=== PATIENT | male | born 1990 | race American Indian/Alaskan Native ===

== ENCOUNTER 2017-06-15 01:09 | Inpatient (IN) | payer OTHER ==
[2017-06-15] MEDS ORDERED: NACL 0.9% 1000 ML 1,000 ML IV ONE (02:02)
[2017-06-15 03:00] LABS: Basophils % (Auto) 0.9 % (0.0-1.8); Hematocrit 20.7 % (35.5-45.6); Mean Corpuscular HGB Conc 29 % (32-34); Mean Corpuscular Hemoglobin 18 pg (28-32); Mean Corpuscular Volume 62 fl (84-94); Platelet Count 274 K/mm3 (140-440); Red Blood Count 3.34 M/mm3 (3.65-5.03); Red Cell Distribution Width 19.1 % (13.2-15.2); White Blood Count 13.3 K/mm3 (4.5-11.0)
[2017-06-15 03:03] LABS: Alanine Aminotransferase 7 units/L (7-56); Albumin 4.3 g/dL (3.9-5); Albumin/Globulin Ratio 1.3 %; Alkaline Phosphatase 59 units/L (35-129); Anion Gap 19 mmol/L; BUN/Creatinine Ratio 8.88; Blood Urea Nitrogen 8 mg/dL (9-20); Calcium 9.3 mg/dL (8.4-10.2); Carbon Dioxide 24 mmol/L (22-30); Chloride 99.5 mmol/L (98-107); Glucose 99 mg/dL (75-100); Lipase 31 units/L (13-60); Potassium 3.8 mmol/L (3.6-5.0); Sodium 139 mmol/L (137-145); Total Protein 7.6 g/dL (6.3-8.2)
[2017-06-15 03:09] LABS: INR 1.04 (0.87-1.13)
[2017-06-15 03:10] LABS: Partial Thromboplastin Time 30.3 Sec. (24.2-36.6)
[2017-06-15] MEDS ORDERED: PROTONIX IV ONE (04:29)
[2017-06-15] MEDS ORDERED: ZOFRAN IV ONE (04:29)
[2017-06-15] MEDS ORDERED: NACL 0.9% 500 ML 500 ML IV ONE (04:34)
[2017-06-15] MEDS ORDERED: PROTONIX 80 MG in NACL 0.9% 100 ML IV ONE (04:34)
--- NOTE | 2017-06-15 04:37 | Emergency Department Report ---
ED GI Bleed HPI - General Chief complaint: GI Bleed Stated complaint: DIZZINESS, RECTAL BLEEDING,VOMITNG Time Seen by Provider: 06/15/17 04:36 Source: patient Mode of arrival: Ambulatory Limitations: No Limitations - History of Present Illness Initial comments: Patient is a 27-year-old male past medical history of hemorrhoids who presents with GI bleeding. Patient states for the last couple days he's been very nauseous and he has noticed dark stools coming out of his rectum. He states his nausea is severe and then he is repeatedly vomiting. Patient states that he is not able to hold any food down. He denies really any pain his nausea is associated with lightheadedness. That has been going on for 10 days. Patient states that he first noticed blood from his rectum which is an abnormal cause has hemorrhoid bleeds. However in the last 4 days he's noticed dark black stools. He has also noticed that when he when he last vomited he had some streaks of blood in it. Severity scale (0 -10): 10 - Related Data Home Medications Medication Instructions Recorded Confirmed Last Taken No Known Home Medications [No 06/15/17 06/15/17 Unknown Reported Home Medications] Allergies Allergy/AdvReac Type Severity Reaction Status Date / Time No Known Allergies Allergy Verified 06/15/17 04:31 ED Review of Systems ROS: Stated complaint: DIZZINESS, RECTAL BLEEDING,VOMITNG Other details as noted in HPI Constitutional: denies: chills, fever Eyes: denies: eye pain, eye discharge, vision change ENT: denies: ear pain, throat pain Respiratory: denies: cough, shortness of breath, wheezing Cardiovascular: denies: chest pain, palpitations Endocrine: no symptoms reported Gastrointestinal: nausea, vomiting, melena. denies: abdominal pain, diarrhea Genitourinary: denies: urgency, dysuria Musculoskeletal: denies: back pain, joint swelling, arthralgia Skin: denies: rash, lesions Neurological: other (lightheadedness ). denies: headache, weakness, paresthesias Psychiatric: denies: anxiety, depression Hematological/Lymphatic: denies: easy bleeding, easy bruising ED Past Medical Hx - Past Medical History Additional medical history: Morbid Obesity - Surgical History Past Surgical History?: No - Social History Smoking Status: Never Smoker Substance Use Type: None - Medications Home Medications: Home Medications Medication Instructions Recorded Confirmed Last Taken Type No Known Home Medications [No 06/15/17 06/15/17 Unknown History Reported Home Medications] ED Physical Exam - General Limitations: No Limitations General appearance: alert, in no apparent distress - Head Head exam: Present: atraumatic, normocephalic - Eye Eye exam: Present: normal appearance - ENT ENT exam: Present: mucous membranes moist - Neck Neck exam: Present: normal inspection - Respiratory Respiratory exam: Present: normal lung sounds bilaterally. Absent: respiratory distress - Cardiovascular Cardiovascular Exam: Present: regular rate, normal rhythm. Absent: systolic murmur, diastolic murmur, rubs, gallop - GI/Abdominal GI/Abdominal exam: Present: soft, normal bowel sounds - Rectal Rectal exam: Present: black stool, hemorrhoids - Extremities Exam Extremities exam: Present: normal inspection - Back Exam Back exam: Present: normal inspection - Neurological Exam Neurological exam: Present: alert, oriented X3 - Psychiatric Psychiatric exam: Present: normal affect, normal mood - Skin Skin exam: Present: warm, dry, intact, normal color. Absent: rash ED Course Vital Signs 06/15/17 06/15/17 01:54 04:21 Temperature 99 F Pulse Rate 93 H 67 Respiratory 20 15 Rate Blood Pressure 132/79 Blood Pressure 132/79 [Left] O2 Sat by Pulse 100 100 Oximetry - Reevaluation(s) Reevaluation #1: 06/15/17 04:56 Patient states that he is feeling nauseous PATIENT fluids and I'll start patient on Protonix drip. Discussed the patient he needs to keep nothing by mouth. - Consultations Consultation #1: 06/15/17 04:[address] Rodgers golf player assistant. He states that patient is to remain nothing by mouth and he will scope the patient later on this morning. ED Medical Decision Making - Lab Data Result diagrams: 06/15/17 02:17 06/15/17 02:17 Lab Results 06/15/17 06/15/17 06/15/17 Range/Units 02:17 02:17 02:17 WBC 13.3 H (4.5-11.0) K/mm3 RBC 3.34 L (3.65-5.03) M/mm3 Hgb 6.0 L (11.8-15.2) gm/dl Hct 20.7 L (35.5-45.6) % MCV 62 L (84-94) fl MCH 18 L (28-32) pg MCHC 29 L (32-34) % RDW 19.1 H (13.2-15.2) % Plt Count 274 (140-440) K/mm3 Lymph % (Auto) 16.9 (13.4-35.0) % [place] % (Auto) 6.7 (0.0-7.3) % Eos % (Auto) 1.0 (0.0-4.3) % Baso % (Auto) 0.9 (0.0-1.8) % Lymph # 2.3 (1.2-5.4) K/mm3 [place] # 0.9 H (0.0-0.8) K/mm3 Eos # 0.1 (0.0-0.4) K/mm3 Baso # 0.1 (0.0-0.1) K/mm3 Seg Neutrophils % 74.5 H (40.0-70.0) % Seg Neutrophils # 9.9 H (1.8-7.7) K/mm3 PT 14.1 (12.2-14.9) Sec. INR 1.04 (0.87-1.13) APTT 30.3 (24.2-36.6) Sec. Sodium 139 (137-145) mmol/L Potassium 3.8 (3.6-5.0) mmol/L Chloride 99.5 (98-107) mmol/L Carbon Dioxide 24 (22-30) mmol/L Anion Gap 19 mmol/L BUN 8 L (9-20) mg/dL Creatinine 0.9 (0.8-1.5) mg/dL Estimated GFR > 60 ml/min BUN/Creatinine Ratio 8.88 % Glucose 99 (75-100) mg/dL Calcium 9.3 (8.4-10.2) mg/dL Total Bilirubin 0.80 (0.1-1.2) mg/dL AST 13 (5-40) units/L ALT 7 (7-56) units/L Alkaline Phosphatase 59 (35-129) units/L Total Protein 7.6 (6.3-8.2) g/dL Albumin 4.3 (3.9-5) g/dL Albumin/Globulin Ratio 1.3 % Lipase 31 (13-60) units/L Blood Type Crossmatch 06/15/17 Range/Units 02:17 WBC (4.5-11.0) K/mm3 RBC (3.65-5.03) M/mm3 Hgb (11.8-15.2) gm/dl Hct (35.5-45.6) % MCV (84-94) fl MCH (28-32) pg MCHC (32-34) % RDW (13.2-15.2) % Plt Count (140-440) K/mm3 Lymph % (Auto) (13.4-35.0) % [place] % (Auto) (0.0-7.3) % Eos % (Auto) (0.0-4.3) % Baso % (Auto) (0.0-1.8) % Lymph # (1.2-5.4) K/mm3 [place] # (0.0-0.8) K/mm3 Eos # (0.0-0.4) K/mm3 Baso # (0.0-0.1) K/mm3 Seg Neutrophils % (40.0-70.0) % Seg Neutrophils # (1.8-7.7) K/mm3 PT (12.2-14.9) Sec. INR (0.87-1.13) APTT (24.2-36.6) Sec. Sodium (137-145) mmol/L Potassium (3.6-5.0) mmol/L Chloride (98-107) mmol/L Carbon Dioxide (22-30) mmol/L Anion Gap mmol/L BUN (9-20) mg/dL Creatinine (0.8-1.5) mg/dL Estimated GFR ml/min BUN/Creatinine Ratio % Glucose (75-100) mg/dL Calcium (8.4-10.2) mg/dL Total Bilirubin (0.1-1.2) mg/dL AST (5-40) units/L ALT (7-56) units/L Alkaline Phosphatase (35-129) units/L Total Protein (6.3-8.2) g/dL Albumin (3.9-5) g/dL Albumin/Globulin Ratio % Lipase (13-60) units/L Blood Type O POSITIVE Crossmatch See Detail - Medical Decision Making Chief medical diagnosis: Peptic ulcer Differential medical diagnosis: External hemorrhoids, internal hemorrhoids, AVM malformation CBC, CMP, type and screen, PTT, INR, IV fluids and I will transfuse patient blood. Patient will need to be admitted to the hospital for his potentially life- threatening GI bleed. Discussed patient with Dr. Rodgers he will scope the patient later on this morning. Discussed plan with patient and he agrees with admission. Critical Care Time: Yes Critical care time in (mins) excluding proc time.: 34 Critical care attestation.: If time is entered above; I have spent that time in minutes in the direct care of this critically ill patient, excluding procedure time. Time spent at patient's bedside 24 minutes Time spent reviewing laboratory findings 5 minutes Time spent with consultants 5 minutes Time spent going over patient's old medical record 0 minutes ED Disposition Clinical Impression: Melena, Hematemesis with nausea Anemia Qualifiers: Anemia type: other cause Other causes of anemia: acute posthemorrhagic Qualified Code(s): D62 - Acute posthemorrhagic anemia Disposition: OP ADMIT IP TO THIS HOSP Is pt being admited?: No Does the pt Need Aspirin: No Condition: Stable Referrals: PRIMARY CARE, [Primary Care Provider] - 3-5 Days Forms: Accompanied Note
[2017-06-15] MEDS ORDERED: TYLENOL PO PRN (05:35)
[2017-06-15] MEDS ORDERED: ZOFRAN IV PRN ×2 (05:35→13:27)
--- NOTE | 2017-06-15 05:41 | History and Physical Report ---
History of Present Illness Date of examination: 06/15/17 History of present illness: 27-year-old man with a history of hemorrhoids comes emergency room with complaints of 10 days of feeling fatigue. He said bright red blood per rectum for 5 days, at least twice a day followed by black stools for 3 days with nausea vomiting. He took BC powder one day while he was having melena Review Of Systems: Constitutional: no weight loss Ears, eyes, nose, mouth and throat: no nasal congestion, no nasal discharge, no sinus pressure, blurry vision, diplopia Neck: No neck pain or rigidity. Cardiovascular: chest pain, orthopnea, palpitations Respiratory: No shortness of breath, cough Gastrointestinal: abdominal pain, hematochezia Genitourinary : no dysuria, frequency , hematuria Musculoskeletal: no muscle ache Integumentary: no rash, no pruritis Neurological: no parathesias, focal weakness Endocrine: no cold or heat intolerance, no polyuria or polydipsia Hematologic/Lymphatic: no easy bruising, no easy bleeding, no gland swelling Allergic/Immunologic: no urticaria, no angioedema. PAST MEDICAL HISTORY:hemorrhoids PAST SURGICAL HISTORY: None FAMILY HISTORY: Denies alcohol, tobacco, drugs SOCIAL HISTORY: Hypertension Medications and Allergies Allergies Allergy/AdvReac Type Severity Reaction Status Date / Time No Known Allergies Allergy Verified 06/15/17 04:31 Home Medications Medication Instructions Recorded Confirmed Last Taken Type No Known Home Medications [No 06/15/17 06/15/17 Unknown History Reported Home Medications] Active Meds: Active Medications Sodium Chloride (Nacl 0.9% 1000 Ml) 1,000 mls @ 250 mls/hr IV ONCE ONE Stop: 06/15/17 06:01 Last Admin: 06/15/17 04:40 Dose: 250 mls/hr Pantoprazole Sodium 80 mg/ (Sodium Chloride) 100 mls @ 10 mls/hr IV ONCE.ED ONE PRN Reason: 8 MG/HR Stop: 06/15/17 14:33 Last Admin: 06/15/17 05:04 Dose: 8 mg/hr, 10 mls/hr Exam - Physical Exam Narrative exam: Gen. appearance: Patient lying in bed in no acute distress HEENT: Normocephalic/atraumatic, pupils equal round reactive to light, extra alkaline movement intact, no scleral icterus, no JVD or thyromegaly or nodule, neck is supple, mucous membrane moist, no erythema or exudate Heart: S1-S2, regular rate and rhythm Lungs: Clear to auscultation bilateral breathing comfortable Abdomen: Positive bowel sounds, nontender, nondistended, no organomegaly Extremities: No edema, cyanosis, clubbing Neuro:: Oriented 3 , cranial nerves II-12 intact, speech, motor intact Skin: No rash, nodules, warm dry - Constitutional Vitals: Temp Pulse Resp BP Pulse Ox 98.5 F 62 15 125/65 100 06/15/17 05:15 06/15/17 05:30 06/15/17 05:30 06/15/17 05:30 06/15/17 05:30 Results - Labs CBC & Chem 7: 06/15/17 13:13 06/15/17 02:17 Labs: Abnormal lab results 06/15/17 06/15/17 06/15/17 Range/Units 02:17 02:17 02:17 WBC 13.3 H (4.5-11.0) K/mm3 RBC 3.34 L (3.65-5.03) M/mm3 Hgb 6.0 L (11.8-15.2) gm/dl Hct 20.7 L (35.5-45.6) % MCV 62 L (84-94) fl MCH 18 L (28-32) pg MCHC 29 L (32-34) % RDW 19.1 H (13.2-15.2) % [place] # 0.9 H (0.0-0.8) K/mm3 Seg Neutrophils % 74.5 H (40.0-70.0) % Seg Neutrophils # 9.9 H (1.8-7.7) K/mm3 BUN 8 L (9-20) mg/dL Crossmatch See Detail Assessment and Plan Assessment Upper GI bleed, rule out ulcer versus other Acute blood loss anemia History of hemorrhoids Plan Admit to medicine Transfuse red cells, start Protonix drip, consult GI Check serial hemoglobin, DVT prophylaxis
[2017-06-15] MEDS ORDERED: NACL 0.9% 1000 ML 1,000 ML IV SCH (06:00)
--- NOTE | 2017-06-15 07:25 | Gastroenterology Consultation ---
History of Present Illness - Reason for Consult Consult date: 06/15/17 GI bleeding Requesting physician: KODI PEREZ - History of Present Illness The patient is a 27 year old man who reports having rectal bleeding for several years and a strong FH of colon cancer, her father in his 40s. The patient had colonoscopy in [facility] in February of this year which revealed hemorrhoids and several polyps, but no cancer. He was at baseline with intermittent rectal bleeding until several weeks ago when he began having excessive fatigue suddenly. In the past week he began having severe LUQ and epigastric pain, passing tarry black stools for the first time and then had several episodes of vomiting BRB. He has lost about 11 pounds in the past week due to inability to keep anything down. He came to the ER and was found to have melena on rectal exam and a Hgb of 6.0 with microscopic indices. No prior history of PUD. He takes Goody powders at least weekly and occasionally consumes moderate amounts of ETOH. The patient has been transfused 2 units of PRBCs overnight. Past History Past Medical History: other (colon polyps) Past Surgical History: No surgical history Social history: . denies: smoking, alcohol abuse Family history: cancer (father had colon cancer at a young age) Medications and Allergies Allergies Allergy/AdvReac Type Severity Reaction Status Date / Time No Known Allergies Allergy Verified 06/15/17 04:31 Home Medications Medication Instructions Recorded Confirmed Last Taken Type No Known Home Medications [No 06/15/17 06/15/17 Unknown History Reported Home Medications] Active Meds: Active Medications Acetaminophen (Tylenol) 650 mg PO Q4H PRN PRN Reason: Pain MILD(1-3)/Fever >100.5/KONG Pantoprazole Sodium 80 mg/ (Sodium Chloride) 100 mls @ 10 mls/hr IV ONCE.ED ONE PRN Reason: 8 MG/HR Stop: 06/15/17 14:33 Last Admin: 06/15/17 05:04 Dose: 8 mg/hr, 10 mls/hr Sodium Chloride (Nacl 0.9% 1000 Ml) 1,000 mls @ 125 mls/hr IV DIRECT KARLIE Ondansetron HCl (Zofran) 4 mg IV Q4H PRN PRN Reason: N/V unrelieved by Reglan Review of Systems - Review of Systems Constitutional: weight loss, fatigue, no fever, no chills Eyes: no change in vision Ears, Nose, Throat: no decreased hearing, no difficulty swallowing, no epistaxis , no painful swallowing Breasts: deferred Cardiovascular: no chest pain, no edema, no rapid/irregular heart beat, no shortness of breath, no syncope Respiratory: no cough, no shortness of breath, no wheezing, no home oxygen Gastrointestinal: abdominal pain, nausea, vomiting, hematemesis, BRBPR, melena, no diarrhea, no change in bowel habits Rectal: bleeding, no pain Male Genitourinary: deferred Musculoskeletal: gait dysfunction, joint pain, muscle pain, muscle weakness Integumentary: deferred, rash, pruritis, jaundice Neurological: no head injury, no paralysis, no weakness, no parasthesias, no memory loss Psychiatric: no anxiety, no memory loss, no change in sleep habits, no change in appetite Endocrine: no cold intolerance, no heat intolerance Hematologic/Lymphatic: no easy bruising, no easy bleeding Allergic/Immunologic: no wheezing Exam - Constitutional Vital Signs: Temp Pulse Resp BP Pulse Ox 98.4 F 72 13 126/81 100 06/15/17 05:44 06/15/17 06:30 06/15/17 06:30 06/15/17 06:30 06/15/17 06:30 General appearance: no acute distress, well-nourished - EENT Eyes: PERRL ENT: hearing intact, clear oral mucosa, dentition normal - Neck Neck: supple, normal ROM, no masses or JVD - Respiratory Respiratory effort: normal Respiratory: bilateral: CTA - Breasts Breasts: deferred - Cardiovascular Rhythm: regular Heart Sounds: Present: S1 & S2. Absent: gallop, rub Extremities: pulses intact, No edema, normal color, Full ROM - Gastrointestinal General gastrointestinal: Present: soft, non-tender, non-distended, normal bowel sounds. Absent: hepatomegaly, splenomegaly, mass Rectal Exam: deferred - Genitourinary Male Genitourinary: deferred - Integumentary Integumentary: Present: clear, warm, dry - Neurologic Neurological: alert and oriented x3 - Labs CBC & Chem 7: 06/15/17 02:17 06/15/17 02:17 Assessment and Plan - Patient Problems (1) Anemia due to acute blood loss Current Visit: Yes Status: Acute Plan to address problem: Anemia has a chronic component with superimposed acute blood loss. He will need iron therapy on discharge. (2) Hematemesis with nausea Current Visit: Yes Status: Acute Plan to address problem: PUD is likely in this setting. Patient has compatible pain and takes NSAIDs regularly. Rule out neoplasia, vascular anomalies. EGD is planned for this morning. F/u H&H pending. Thank you very much for asking me to see this patient in consultation. (3) Melena Current Visit: Yes Status: Acute
[2017-06-15 09:44] LABS: Hematocrit 23.6 % (35.5-45.6); Hemoglobin 7.2 gm/dl (11.8-15.2)
[2017-06-15] MEDS ORDERED: WATER FOR IRRIG STERILE IR ONE (10:19)
--- NOTE | 2017-06-15 10:35 | Anesthesia Consultation ---
Anesthesia Consult and Med Hx Date of service: 06/15/17 - Airway Anesthetic Teeth Evaluation: Good (one broken) ROM Head & Neck: Adequate Mental/Hyoid Distance: Adequate Mallampati Class: Class III Intubation Access Assessment: Possibly Difficult - Pulmonary Exam CTA: Yes - Cardiac Exam Cardiac Exam: RRR - Pre-Operative Health Status ASA Pre-Surgery Classification: ASA3 Proposed Anesthetic Plan: MAC (previous colonoscopy) - Hematic Hx Anemia: No (hemmorhoids, GI bleed) - Other Systems Hx Obesity: Yes (DINORA)
--- NOTE | 2017-06-15 10:36 | Anesthesia Day of Surgery ---
Anesthesia Day of Surgery - Day of Surgery Patient Examined: Yes Patient H&P Reviewed: Yes Patient is NPO: Yes
--- NOTE | 2017-06-15 12:00 | Operative Report ---
Operative Report Operative Report: Date of procedure: 06/15/2017 Procedure: Esophagogastroduodenoscopy with biopsies for Helicobacter pylori. Preprocedure diagnosis: Per GI bleeding manifested by melena and severe anemia. Post procedure diagnosis: Prepyloric ulcers with clean bases and flat margins Endoscopist: Dr. Rodgers Anesthesia: Monitored anesthesia care per anesthesia department Medications: Propofol per anesthesia Estimated blood loss: Your O After careful discussion of the nature and purpose of the procedure as well as details the technique risks benefits and alternatives consent was obtained. The patient was placed in the left lateral decubitus position and medicated per anesthesia. The tip of the Lenda EQ 570 video scope was passed per orum under direct vision into the esophagus and advanced into the stomach and descending duodenum. There was no blood in the upper digestive tract. The descending duodenum the duodenal bulb and pylorus were symmetrical and normal. The scope was withdrawn into the stomach and the stomach then gently insufflated with air. The antrum revealed 2 small ulcers one was approximately 1 cm in size and serpiginous. A second 5 mm ulcer was also noted. Both ulcers had flat bases and margins and had no stigmata of recent bleeding. Biopsies away from the ulcers were obtained to assess for Helicobacter pylori. The stomach was further insufflated and the scope was then retroflexed and partially withdrawn. The cardia, fundus, and body of the stomach were within normal limits and easily distensible.The scope was then withdrawn in the forward position. The esophagogastric junction was at 40 cm. The esophageal body was normal throughout. The procedure was was well tolerated and the patient was observed in recovery. Impressions: Multiple prepyloric ulcers with no stigmata of recent bleeding. Low risk for rebleeding. Plan: [Advanced to full liquid diet. High-dose PPI therapy. Await biopsies for H. pylori which will be discussed on outpatient follow-up. Home tomorrow if no bleeding overnight. Outpatient colonoscopy and hemorrhoid therapy.] Electronically signed: Gabriel Rodgers MD
--- NOTE | 2017-06-15 12:04 | Post Anesthesia Evaluation ---
- Post Anesthesia Evaluation Patient Participated: Yes Airway Patent: Yes Stable Respiratory Function: Yes Temp > 96.8F: Yes Pain Manageable: Yes Adequeate Hydration: Yes Anesthesia Complications: No
[2017-06-15] MEDS ORDERED: DIPRIVAN 10 MG/ML IV ONE ×2 (12:06→14:59)
[2017-06-15] MEDS: NACL 0.9% 1000 ML 1,000 ML IV SCH ×2 (12:14→14:02)
[2017-06-15] MEDS ORDERED: NACL 0.9% 500 ML 500 ML IV NR (13:00)
--- NOTE | 2017-06-15 13:06 | Progress Note ---
Assessment and Plan Assessment and plan: Patient is a 27-year-old man with a history of peptic ulcer disease who has underwent a colonoscopy in [place], [place] who presents with fatigue and bright red blood per rectum. He was taking Goody powders. His hemoglobin was 6.0 and after 2 u nits it increased only to 7.2. Operative Report: Date of procedure: 06/15/2017 Procedure: Esophagogastroduodenoscopy with biopsies for Helicobacter pylori. Preprocedure diagnosis: Per GI bleeding manifested by melena and severe anemia. Post procedure diagnosis: Prepyloric ulcers with clean bases and flat margins Endoscopist: Dr. Rodgers Anesthesia: Monitored anesthesia care per anesthesia department Medications: Propofol per anesthesia Estimated blood loss: Your O After careful discussion of the nature and purpose of the procedure as well as details the technique risks benefits and alternatives consent was obtained. The patient was placed in the left lateral decubitus position and medicated per anesthesia. The tip of the [employer] EQ 570 video scope was passed per orum under direct vision into the esophagus and advanced into the stomach and descending duodenum. There was no blood in the upper digestive tract. The descending duodenum the duodenal bulb and pylorus were symmetrical and normal. The scope was withdrawn into the stomach and the stomach then gently insufflated with air. The antrum revealed 2 small ulcers one was approximately 1 cm in size and serpiginous. A second 5 mm ulcer was also noted. Both ulcers had flat bases and margins and had no stigmata of recent bleeding. Biopsies away from the ulcers were obtained to assess for Helicobacter pylori. The stomach was further insufflated and the scope was then retroflexed and partially withdrawn. The cardia, fundus, and body of the stomach were within normal limits and easily distensible.The scope was then withdrawn in the forward position. The esophagogastric junction was at 40 cm. The esophageal body was normal throughout. The procedure was was well tolerated and the patient was observed in recovery. Impressions: Multiple prepyloric ulcers with no stigmata of recent bleeding. Low risk for rebleeding. Plan: [Advanced to full liquid diet. High-dose PPI therapy. Await biopsies for H. pylori which will be discussed on outpatient follow-up. Home tomorrow if no bleeding overnight. Outpatient colonoscopy and hemorrhoid therapy -Acute GI blood loss anemia due to PUD: Counseled on not taking Goody -Gastric ulcer: PPI -Morbid obesity, BMI 41.3: Lifestyle modification stressed Transfuse another 1 unit PRBC, repeat H&H in a.m. The high probability of a clinically significant, sudden or life threatening deterioration of the [] system(s) required my full and direct attention, intervention and personal management. The aggregate critical care time was [33] minutes. This time is in addition to time spent performing reported procedures but includes the following: [] Data Review and interpretation [] Patient assessment and monitoring of vital signs [] Documentation [] Medication orders and management History Interval history: Patient was seen and examined. Follow-up on current diagnosis/abd pains+ nausea . Overnight uneventful. Patient denies any chest pain, shortness breath , order or severe headaches. Imaging, nursing note, chart, labs and old chart reviewed. Discussed with patient. Hospitalist Physical - Physical exam Narrative exam: GEN: WDWN, NAD, AWAKE, ALERT, ORIENTATED x 3 HEENT: NCAT, EOMI, PERRL, OP Clear NECK: supple, no adenopathy, no thyromegaly, no JVD CVS/HEART: RRR, NORMAL S1S2, NO JVD, pulses present bilaterally CHEST/LUNGS: CTA B, Symmetrical chest expansion, good air entry bilaterally GI/Abdomen: soft, epigastric pains, good bowel sounds, no guarding or rebound /Bladder: no suprapubic tenderness, no CVA or paraspinal tenderness EXT/Skin: no c/c/e, no significant edema or obvious rash MSK: FROM x 4 Neuro: CN 2-12 grossly intact, no new focal deficits Psych: calm - Constitutional Vitals: Temp Pulse Resp BP Pulse Ox 98.5 F 62 18 133/62 98 06/15/17 11:55 06/15/17 12:27 06/15/17 12:27 06/15/17 12:27 06/15/17 12:27 Results - Labs CBC & Chem 7: 06/15/17 09:19 06/15/17 02:17 Labs: Laboratory Last Values WBC 13.3 K/mm3 (4.5-11.0) H 06/15/17 02:17 RBC 3.34 M/mm3 (3.65-5.03) L 06/15/17 02:17 Hgb 7.2 gm/dl (11.8-15.2) L 06/15/17 09:19 Hct 23.6 % (35.5-45.6) L 06/15/17 09:19 MCV 62 fl (84-94) L 06/15/17 02:17 MCH 18 pg (28-32) L 06/15/17 02:17 MCHC 29 % (32-34) L 06/15/17 02:17 RDW 19.1 % (13.2-15.2) H 06/15/17 02:17 Plt Count 274 K/mm3 (140-440) 06/15/17 02:17 Lymph % (Auto) 16.9 % (13.4-35.0) 06/15/17 02:17 Hyde % (Auto) 6.7 % (0.0-7.3) 06/15/17 02:17 Eos % (Auto) 1.0 % (0.0-4.3) 06/15/17 02:17 Baso % (Auto) 0.9 % (0.0-1.8) 06/15/17 02:17 Lymph # 2.3 K/mm3 (1.2-5.4) 06/15/17 02:17 Hyde # 0.9 K/mm3 (0.0-0.8) H 06/15/17 02:17 Eos # 0.1 K/mm3 (0.0-0.4) 06/15/17 02:17 Baso # 0.1 K/mm3 (0.0-0.1) 06/15/17 02:17 Seg Neutrophils % 74.5 % (40.0-70.0) H 06/15/17 02:17 Seg Neutrophils # 9.9 K/mm3 (1.8-7.7) H 06/15/17 02:17 PT 14.1 Sec. (12.2-14.9) 06/15/17 02:17 INR 1.04 (0.87-1.13) 06/15/17 02:17 APTT 30.3 Sec. (24.2-36.6) 06/15/17 02:17 Sodium 139 mmol/L (137-145) 06/15/17 02:17 Potassium 3.8 mmol/L (3.6-5.0) 06/15/17 02:17 Chloride 99.5 mmol/L (98-107) 06/15/17 02:17 Carbon Dioxide 24 mmol/L (22-30) 06/15/17 02:17 Anion Gap 19 mmol/L 06/15/17 02:17 BUN 8 mg/dL (9-20) L 06/15/17 02:17 Creatinine 0.9 mg/dL (0.8-1.5) 06/15/17 02:17 Estimated GFR > 60 ml/min 06/15/17 02:17 BUN/Creatinine Ratio 8.88 % 06/15/17 02:17 Glucose 99 mg/dL (75-100) 06/15/17 02:17 Calcium 9.3 mg/dL (8.4-10.2) 06/15/17 02:17 Total Bilirubin 0.80 mg/dL (0.1-1.2) 06/15/17 02:17 AST 13 units/L (5-40) 06/15/17 02:17 ALT 7 units/L (7-56) 06/15/17 02:17 Alkaline Phosphatase 59 units/L (35-129) 06/15/17 02:17 Total Protein 7.6 g/dL (6.3-8.2) 06/15/17 02:17 Albumin 4.3 g/dL (3.9-5) 06/15/17 02:17 Albumin/Globulin Ratio 1.3 % 06/15/17 02:17 Lipase 31 units/L (13-60) 06/15/17 02:17 Blood Type O POSITIVE 06/15/17 02:17 Antibody Screen Negative 06/15/17 02:17 Crossmatch See Detail 06/15/17 02:17
[2017-06-15 13:35] LABS: Hematocrit 23.9 % (35.5-45.6); Hemoglobin 7.3 gm/dl (11.8-15.2)
[2017-06-15] MEDS: PROTONIX 80 MG in NACL 0.9% 100 ML IV SCH (16:22)
[2017-06-16] MEDS: PROTONIX 80 MG in NACL 0.9% 100 ML IV SCH (03:38)
[2017-06-16 06:05] LABS: Hematocrit 25.5 % (35.5-45.6); Hemoglobin 8.1 gm/dl (11.8-15.2); Mean Corpuscular HGB Conc 32 % (32-34); Platelet Count 192 K/mm3 (140-440); Red Blood Count 3.81 M/mm3 (3.65-5.03); White Blood Count 10.5 K/mm3 (4.5-11.0)
[2017-06-16 06:10] LABS: Mean Corpuscular Hemoglobin 21 pg (28-32); Mean Corpuscular Volume 67 fl (84-94); Red Cell Distribution Width 23.7 % (13.2-15.2)
[2017-06-16 06:19] LABS: Anion Gap 18 mmol/L; BUN/Creatinine Ratio 8.75; Blood Urea Nitrogen 7 mg/dL (9-20); Calcium 8.3 mg/dL (8.4-10.2); Carbon Dioxide 21 mmol/L (22-30); Chloride 104.3 mmol/L (98-107); Glucose 86 mg/dL (75-100); Potassium 3.9 mmol/L (3.6-5.0); Sodium 139 mmol/L (137-145)
[2017-06-16] MEDS ORDERED: PROTONIX PO SCH (10:00)
--- NOTE | 2017-06-16 10:36 | Gastroenterology Progress Note ---
Assessment and Plan - Patient Problems (1) Anemia due to acute blood loss Current Visit: Yes Status: Acute Plan to address problem: Improved post transfusion on admission and stable without further transfusion overnight (2) Hematemesis with nausea Current Visit: Yes Status: Acute (3) Melena Current Visit: Yes Status: Acute (4) Gastric ulcer Current Visit: Yes Status: Acute Qualifiers: Gastric ulcer chronicity: G Gastric ulcer complication status: G Plan to address problem: S/p UGI bleed. No recurrence and a low risk of rebleed based on appearance of ulcer. Stable GI pacheco to go home today. Will need PPI and iron therapy. Office appointment advised in about 10 days, patient will call to arrange. Subjective Date of service: 06/16/17 Principal diagnosis: UGI bleed Interval history: Feels good today. Melena resolving. Eating well. No abdominal pain, nausea or vomiting. Objective - Constitutional Vitals: Temp Pulse Resp BP Pulse Ox 99.3 F 72 20 119/66 98 06/16/17 08:55 06/16/17 08:55 06/16/17 08:55 06/16/17 08:55 06/16/17 08:55 General appearance: no acute distress - EENT ENT: hearing intact, clear oral mucosa, dentition normal - Respiratory Respiratory effort: normal Respiratory: bilateral: CTA - Cardiovascular Rhythm: regular - Extremities Extremities: pulses intact, No edema, normal color, Full ROM - Gastrointestinal General gastrointestinal: Present: soft, non-tender, non-distended, normal bowel sounds - Neurologic Neurological: alert and oriented x3 - Labs CBC & Chem 7: 06/16/17 05:09 06/16/17 05:09 Labs: Laboratory Results - last 24 hr 06/15/17 06/16/17 06/16/17 13:13 05:09 05:09 WBC 10.5 RBC 3.81 Hgb 7.3 L 8.1 L Hct 23.9 L 25.5 L MCV 67 L MCH 21 L MCHC 32 RDW 23.7 H Plt Count 192 Sodium 139 Potassium 3.9 Chloride 104.3 Carbon Dioxide 21 L Anion Gap 18 BUN 7 L Creatinine 0.8 Estimated GFR > 60 BUN/Creatinine Ratio 8.75 Glucose 86 Calcium 8.3 L
[2017-06-16] MEDS ORDERED: PROTONIX 80 MG in NACL 0.9% 100 ML IV SCH (11:00)
--- NOTE | 2017-06-16 11:03 | Discharge Summary ---
Providers - Providers Date of Admission: 06/15/17 05:35 Date of discharge: 06/16/17 Attending physician: INES NELSON Primary care physician: MERCHANDISER SEASONAL Hospitalization Condition: Stable Hospital course: Patient is a 27-year-old man with a history of peptic ulcer disease who has underwent a colonoscopy in [place], [place] who presents with fatigue and bright red blood per rectum. He was taking Goody powders. His hemoglobin was 6.0 and after 2 u nits it increased only to 7.2. Operative Report: Date of procedure: 06/15/2017 Procedure: Esophagogastroduodenoscopy with biopsies for Helicobacter pylori. Preprocedure diagnosis: Per GI bleeding manifested by melena and severe anemia. Post procedure diagnosis: Prepyloric ulcers with clean bases and flat margins Endoscopist: Dr. Bynum Anesthesia: Monitored anesthesia care per anesthesia department Medications: Propofol per anesthesia Estimated blood loss: Your O After careful discussion of the nature and purpose of the procedure as well as details the technique risks benefits and alternatives consent was obtained. The patient was placed in the left lateral decubitus position and medicated per anesthesia. The tip of the [employer] EQ 570 video scope was passed per orum under direct vision into the esophagus and advanced into the stomach and descending duodenum. There was no blood in the upper digestive tract. The descending duodenum the duodenal bulb and pylorus were symmetrical and normal. The scope was withdrawn into the stomach and the stomach then gently insufflated with air. The antrum revealed 2 small ulcers one was approximately 1 cm in size and serpiginous. A second 5 mm ulcer was also noted. Both ulcers had flat bases and margins and had no stigmata of recent bleeding. Biopsies away from the ulcers were obtained to assess for Helicobacter pylori. The stomach was further insufflated and the scope was then retroflexed and partially withdrawn. The cardia, fundus, and body of the stomach were within normal limits and easily distensible.The scope was then withdrawn in the forward position. The esophagogastric junction was at 40 cm. The esophageal body was normal throughout. The procedure was was well tolerated and the patient was observed in recovery. Impressions: Multiple prepyloric ulcers with no stigmata of recent bleeding. Low risk for rebleeding. Plan: [Advanced to full liquid diet. High-dose PPI therapy. Await biopsies for H. pylori which will be discussed on outpatient follow-up. Home tomorrow if no bleeding overnight. Outpatient colonoscopy and hemorrhoid therapy -Acute GI blood loss anemia due to PUD: Counseled on stopping Goody -Gastric ulcer: PPI -Morbid obesity, BMI 41.3: Lifestyle modification stressed -Hemorrhoids which chronic gib bleed anemia for 20 years per patient Transfused another 1 unit PRBC, repeat H&H in a.m.==>stable per GI, Dr. Bynum "(1) Anemia due to acute blood loss Current Visit: Yes Status: Acute Plan to address problem: Improved post transfusion on admission and stable without further transfusion overnight (2) Hematemesis with nausea Current Visit: Yes Status: Acute (3) Melena Current Visit: Yes Status: Acute (4) Gastric ulcer Current Visit: Yes Status: Acute Qualifiers: Gastric ulcer chronicity: G Gastric ulcer complication status: G Plan to address problem: S/p UGI bleed. No recurrence and a low risk of rebleed based on appearance of ulcer. Stable GI nelson to go home today. Will need PPI and iron therapy. Office appointment advised in about 10 days, patient will call to arrange." Disposition: NH-30 STILL A PATIENT Time spent for discharge: 35 minutes Core Measure Documentation - Palliative Care Palliative Care/ Comfort Measures: Not Applicable - Core Measures Any of the following diagnoses?: none - VTE Discharge Requirements Deep Vein Thrombosis/Pulmonary Embolism Present on Admission: No Has pt received <5 days of overlap therapy or INR<2.0: No Anticoagulant overlap therapy prescribed at discharge: No Contraindication No Overlap Therapy order at DC: Not Indicated Exam - Physical Exam Narrative exam: GEN: WDWN, NAD, AWAKE, ALERT, ORIENTATED x 3 HEENT: NCAT, EOMI, PERRL, OP Clear NECK: supple, no adenopathy, no thyromegaly, no JVD CVS/HEART: RRR, NORMAL S1S2, NO JVD, pulses present bilaterally CHEST/LUNGS: CTA B, Symmetrical chest expansion, good air entry bilaterally GI/Abdomen: soft, epigastric pains, good bowel sounds, no guarding or rebound /Bladder: no suprapubic tenderness, no CVA or paraspinal tenderness EXT/Skin: no c/c/e, no significant edema or obvious rash MSK: FROM x 4 Neuro: CN 2-12 grossly intact, no new focal deficits Psych: calm - Constitutional Vitals: Temp Pulse Resp BP Pulse Ox 99.3 F 72 20 119/66 98 06/16/17 08:55 06/16/17 08:55 06/16/17 08:55 06/16/17 08:55 06/16/17 08:55 Plan Activity: other Diet: advance as tolerated Additional Instructions: No aspirin, no bc goody, no Goody, no ibuprofen, no aleve, no motrin. Follow up with: THEO SHIN MD [Primary Care Provider] - 3-5 Days ANTOINETTE BYNUM MD [Staff Physician] - 7 Days Forms: Accompanied Note Prescriptions: Pantoprazole [Protonix TAB] 40 mg PO DAILY #30 tablet
[2017-06-16 14:19] VITALS: BP 124/78
--- NOTE | 2017-06-17 00:20 | Admit Criteria Form ---
Admission Criteria Documentation: GASTROINTESTINAL BLEEDING Clinical Indications for Inpatient Care (Place 'X' for any and all applicable criteria): Ongoing inpatient care may be indicated for gastrointestinal bleeding with ANY ONE of the following (4)(20)(21)(22)(23)(24): [ X]I. Active bleeding (eg, fresh voluminous blood in emesis or nasogastric aspirate, or per rectum) [ ]II. Hemodynamic instability [ ]III. Anticoagulation therapy or coagulopathy ((eg, advanced liver disease, irreversible anticoagulation) [ ]IV. Ischemic colitis (22) [ ]V. Endoscopy showing arterial bleeding, adherent clot, nonbleeding visible vessel, varices, flat red spots, ulcer size greater than 2 cm, or portal hypertensive gastropathy [ ]. High-risk low platelet count [ ]VII. Anemia requiring inpatient care as indicated by ANY ONE of the following a)[ ] Cognitive impairment b)[ ] Syncope c)[ ] Heart failure d)[ ] Chest pain e)[ ] Dyspnea f)[ ] Other findings suggesting inadequate perfusion (eg, peripheral or myocardial ischemia, end organ dysfunction) [ ]VIII. High-risk low platelet count [ ]IX. Suspected variceal cause of bleeding as indicated by ANY ONE of the following(27)(28): a)[ ] Known varices b)[ ] Hepatomegaly or splenomegaly c)[ ] Ascites d)[ ] Jaundice or scleral icterus e)[ ] History of liver disease (eg, cirrhosis) f)[ ] Physical findings of portal hypertension (eg, caput medusa) g)[ ] Comorbid disorder indicating risk for portal vein thrombosis (eg , abdominal surgery, sepsis, shock, exchange transfusion, prior umbilical vein catheterization) Extended stay may be needed until ALL of the following are present(20)(38)(47): [ ]a) Hemodynamic stability [ ]b) No evidence of active bleeding (eg, stable Hematocrit) [ ]c) Platelet count, prothrombin time, and partial thromboplastin time acceptable for next level of care [ ]d) Surgical or other acute intervention not needed [ ]e) Oral hydration and diet tolerated The original [facility] content created by Ulises Chavez has been revised. The portions of the content which have been revised are identified through the use of italic text or in bold, and [facility] has neither reviewed nor approved the modified material. All other unmodified content is copyright [facility]. Please see references footnoted in the original [facility] edition 2016 Admission Criteria Met: Yes
== END 2017-06-16 15:43 | disposition home or self-care (01) | DRG 378 ==
LOC: ED 01:09 → 4A 05:35
PROVIDERS: ADMIT Internal Medicine; ATTEND Internal Medicine
PROC: 0DB98ZX Excision of Duodenum, Via Natural or Artificial Opening Endoscopic, Diagnostic (ICD-10-PCS; principal; 2017-06-15)
PROC: 0DB78ZX Excision of Stomach, Pylorus, Via Natural or Artificial Opening Endoscopic, Diagnostic (ICD-10-PCS; 2017-06-15)
PROC: 30233N1 Transfusion of Nonautologous Red Blood Cells into Peripheral Vein, Percutaneous Approach (ICD-10-PCS; 2017-06-15)
DX: K92.1 Melena (principal); D62 Acute posthemorrhagic anemia; Z68.41 Body mass index [BMI] 40.0-44.9, adult; E66.01 Morbid (severe) obesity due to excess calories; K64.9 Unspecified hemorrhoids; K92.0 Hematemesis; I10 Essential (primary) hypertension; K25.9 Gastric ulcer, unspecified as acute or chronic, without hemorrhage or perforation; E66.9 Obesity, unspecified; Z85.038 Personal history of other malignant neoplasm of large intestine; Z80.9 Family history of malignant neoplasm, unspecified; Z80.8 Family history of malignant neoplasm of other organs or systems; Z87.11 Personal history of peptic ulcer disease
CPT/HCPCS: 36415; 80048; 80053; 83690; 85014; 85018; 85025; 85027; 85610; 85730; 86850; 86900; 86901; 86920; 88305; 88342; 93005; 93010; 96361; 96365; 96366; 96375; C9113; J2405; J2704; J7030; J7040; P9016

== ENCOUNTER 2017-07-04 15:01 | Inpatient (IN) | payer OTHER ==
[2017-07-04 16:25] LABS: Alanine Aminotransferase 9 units/L (7-56); Albumin 4.7 g/dL (3.9-5); Albumin/Globulin Ratio 1.2 %; Alkaline Phosphatase 62 units/L (35-129); Anion Gap 24 mmol/L; BUN/Creatinine Ratio 8.88; Blood Urea Nitrogen 8 mg/dL (9-20); Calcium 9.9 mg/dL (8.4-10.2); Carbon Dioxide 22 mmol/L (22-30); Chloride 100.4 mmol/L (98-107); Glucose 87 mg/dL (75-100); Potassium 4.3 mmol/L (3.6-5.0); Sodium 142 mmol/L (137-145); Total Protein 8.7 g/dL (6.3-8.2)
[2017-07-04 17:07] LABS: Basophils % (Auto) 1.1 % (0.0-1.8); Eosinophils % (Auto) 1.5 % (0.0-4.3); Hemoglobin 7.2 gm/dl (11.8-15.2); Mean Corpuscular HGB Conc 30 % (32-34); Red Blood Count 3.67 M/mm3 (3.65-5.03); White Blood Count 17.9 K/mm3 (4.5-11.0)
[2017-07-04] MEDS ORDERED: NACL 0.9% 1000 ML 1,000 ML IV ONE (17:18)
[2017-07-04 17:28] LABS: Mean Corpuscular Hemoglobin 20 pg (28-32); Mean Corpuscular Volume 66 fl (84-94); Red Cell Distribution Width 24.5 % (13.2-15.2)
[2017-07-04 17:34] LABS: Platelet Count 1109 K/mm3 (140-440)
--- NOTE | 2017-07-04 17:49 | Emergency Department Report ---
HPI - General Chief Complaint: GI Bleed Time Seen by Provider: 07/04/17 17:00 - HPI HPI: This is a 27-year-old [place] male presents to the emergency department by EMS with complaint of body aches and weakness resulting in recurrent falls. The patient has helicobacter pylori and is currently on day 9 of the triple therapy. The past 5 days he has been having nausea and vomiting and has not been able to keep any liquids or solids down. For this reason he also has not had a bowel movement since that time. He denies any significant abdominal pain but does have pain just about everywhere else. He complains of a fall yesterday while trying to get up from his desk at work and today says he has had 4 falls. He says "I am basically immobile." He denies any headache but does say that he is having trouble focusing with his vision. He has not taken anything else for symptoms prior to presentation. No recent travel. 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 ED Past Medical Hx - Past Medical History Previous Medical History?: Yes Additional medical history: Morbid Obesity, H Pylori, 2 gastric ulcers - Social History Smoking Status: Never Smoker Substance Use Type: None, Alcohol - Medications Home Medications: Home Medications Medication Instructions Recorded Confirmed Last Taken Type Acetaminophen [Acetaminophen TAB] 325 mg PO Q4H PRN #30 tablet 06/16/17 Unknown Rx Pantoprazole [Protonix TAB] 40 mg PO DAILY #30 tablet 06/16/17 07/04/17 Unknown Rx Amoxicillin [Trimox CAP] 500 mg PO BID 07/04/17 07/04/17 Unknown History Azithromycin [Zithromax] 250 mg PO QDAY 07/04/17 07/04/17 Unknown History Ondansetron [Zofran Odt] 4 mg PO Q4H 07/04/17 07/04/17 Unknown History ED Review of Systems ROS: Stated complaint: BODY PAIN Other details as noted in HPI Comment: All other systems reviewed and negative Constitutional: weakness. denies: fever Eyes: denies: eye pain, eye discharge, vision change ENT: denies: ear pain, throat pain Respiratory: denies: cough, shortness of breath, wheezing Cardiovascular: chest pain. denies: palpitations Gastrointestinal: nausea, vomiting, constipation Genitourinary: denies: dysuria, discharge Musculoskeletal: back pain, arthralgia, myalgia. denies: joint swelling Skin: denies: rash, lesions Neurological: weakness. denies: headache Physical Exam - Physical Exam Vital Signs: Vital Signs 07/04/17 07/04/17 15:03 15:19 Temperature 98.4 F Pulse Rate 86 Respiratory 20 20 Rate Blood Pressure 150/90 O2 Sat by Pulse 100 Oximetry Physical Exam: GENERAL: The patient is well-developed well-nourished. HENT: Normocephalic. Atraumatic. Patient has moist mucous membranes. EYES: Extraocular motions are intact. Pupils equal reactive to light bilaterally. No nystagmus. NECK: Supple. Trachea is midline. CHEST/LUNGS: Clear to auscultation. There is no respiratory distress noted. HEART/CARDIOVASCULAR: Regular. There is no tachycardia. There is no gallop rub or murmur. ABDOMEN: Abdomen is soft, nontender. Patient has normal bowel sounds. There is no abdominal distention. SKIN: Skin is warm and dry. NEURO: The patient is awake, alert, and oriented. The patient is cooperative. The patient has no focal neurologic deficits. The patient has normal speech. Cranial nerves II through XII grossly intact. The patient displays some generalized weakness to the extremities but is seen moving all 4 extremities. MUSCULOSKELETAL: There is no obvious deformity. Radial pulses +2 over 4 bilaterally. Cap refill less than 2 seconds. There is no evidence of acute injury. ED Course Vital Signs 07/04/17 07/04/17 15:03 15:19 Temperature 98.4 F Pulse Rate 86 Respiratory 20 20 Rate Blood Pressure 150/90 O2 Sat by Pulse 100 Oximetry ED Medical Decision Making - Lab Data Result diagrams: 07/04/17 15:30 07/04/17 15:30 - EKG Data -: EKG Interpreted by Nc EKG shows normal: sinus rhythm, axis, intervals, QRS complexes, ST-T waves Rate: normal - EKG Data When compared to previous EKG there are: previous EKG unavailable Interpretation: normal EKG - Radiology Data Radiology results: report reviewed EXAM: CT HEAD/BRAIN WO CON HISTORY: Weakness TECHNIQUE: CT head without contrast PRIORS: None. FINDINGS: No acute intra-axial or extra-axial hemorrhage is identified. There is no evidence of midline shift or mass effect. The ventricles and sulci are within normal limits. Voss-white matter differentiation is intact. No acute parenchymal abnormalities seen. Bony calvarium is grossly intact. Visualized portions of the mastoids and paranasal sinuses are unremarkable. IMPRESSION: Negative CT head - Medical Decision Making 27-year-old male presents to the emergency department with a complaint of generalized weakness and recurrent falls. He doesn't history of Helicobacter pylori but says that he is not sure whether there is any current bleeding and denies any significant current abdominal pain. He does display some weakness on physical examination. A CT of the head was done but there is no signs of any ischemic changes, bleed, shift, mass or any acute process. EKG is normal without ST elevation IN, ischemia or dysrhythmia. His labs do show some anemia with hemoglobin of 7.2, down from 8 from a few weeks ago. He also now has significant thrombocytosis of greater than 1 million within it was about 190, 000 a few weeks ago. For all these reasons the patient will be admitted to the hospital for further evaluation and treatment and has been accepted for admission by the hospitalist, Dr. Chavez. - Differential Diagnosis TIA, CVA, polycythemia vera, sepsis Critical Care Time: No Critical care attestation.: If time is entered above; I have spent that time in minutes in the direct care of this critically ill patient, excluding procedure time. ED Disposition Clinical Impression: Recurrent falls, Weakness, Thrombocytosis Anemia Qualifiers: Anemia type: unspecified type Qualified Code(s): D64.9 - Anemia, unspecified Hypertension Qualifiers: Hypertension type: essential hypertension Qualified Code(s): I10 - Essential ( primary) hypertension UTI (urinary tract infection) Qualifiers: Urinary tract infection type: acute cystitis Hematuria presence: without hematuria Qualified Code(s): N30.00 - Acute cystitis without hematuria Disposition: OP ADMIT IP TO THIS HOSP Is pt being admited?: Yes Condition: Stable Time of Disposition: 19:14
--- NOTE | 2017-07-04 18:30 | Cat Scan Report ---
FINAL REPORT EXAM: CT HEAD/BRAIN WO CON HISTORY: Weakness TECHNIQUE: CT head without contrast PRIORS: None. FINDINGS: No acute intra-axial or extra-axial hemorrhage is identified. There is no evidence of midline shift or mass effect. The ventricles and sulci are within normal limits. Voss-white matter differentiation is intact. No acute parenchymal abnormalities seen. Bony calvarium is grossly intact. Visualized portions of the mastoids and paranasal sinuses are unremarkable. IMPRESSION: Negative CT head
[2017-07-04] MEDS ORDERED: ZOFRAN IV ONE (20:11)
[2017-07-04 20:14] LABS: Urine Drugs of Abuse Note Disclamer
[2017-07-04 20:43] LABS: Bacteria,Urine 1+ /HPF (Negative); Bilirubin,Urine NEG (Negative); Blood,Urine NEG (Negative); Ketones,Urine 80 mg/dL (Negative); Leukocyte Esterase,Urine LG (Negative); Mucus,Urine 3+ /HPF; Nitrite,Urine NEG (Negative)
--- NOTE | 2017-07-04 21:26 | History and Physical Report ---
History of Present Illness Date of examination: 07/04/17 Date of admission: 07/04/17 19:15 Chief complaint: Vomiting 5 days Severe weakness and fall x2 to 3 times today History of present illness: 27 y/o AAM with hx of H pylori diagnosed recently and on day 9 of triple drug therapy ( Amoxicillin Biaxin 1gm po bid Protonix 50 bid)has been vomiting for 5 days 3 to 4 times a day.Feels very weak and apparently fell 2 to 3 times over the last 48 hrs.Also body aches all over.No fever.Dysuria present.Some epigastric discomfort present.Was diagnosed with H Pylori and 2 gastric ulcers recently - hence the triple drug regimen.No BM because of decreased food intake.No syncope.Feels Light headed and weak from recurrent vomiting.Exacerbating ffactor -H pylori medication. Past History Past Medical History: other (Gastric ulcerx2 and H pylori) Past Surgical History: No surgical history Social history: no significant social history, lives with family, full code. denies: smoking, alcohol abuse Family history: hypertension Medications and Allergies Allergies Allergy/AdvReac Type Severity Reaction Status Date / Time No Known Allergies Allergy Verified 07/04/17 15:03 Home Medications Medication Instructions Recorded Confirmed Last Taken Type Acetaminophen [Acetaminophen TAB] 325 mg PO Q4H PRN #30 tablet 06/16/17 Unknown Rx Pantoprazole [Protonix TAB] 40 mg PO DAILY #30 tablet 06/16/17 07/04/17 Unknown Rx Amoxicillin [Trimox CAP] 500 mg PO BID 07/04/17 07/04/17 Unknown History Azithromycin [Zithromax] 250 mg PO QDAY 07/04/17 07/04/17 Unknown History Ondansetron [Zofran Odt] 4 mg PO Q4H 07/04/17 07/04/17 Unknown History Review of Systems All systems: negative Constitutional: anorexia, fatigue, weakness, malaise, lethargy, no weight loss, no weight gain, no fever, no chills, no sweats, no night sweats Ears, nose, mouth and throat: no ear pain, no dysphagia, no hoarseness, no sore throat, no swelling in mouth, no swelling in throat, no odynophagia Cardiovascular: lightheadedness, no chest pain, no orthopnea, no palpitations, no rapid/irregular heart beat, no edema, no syncope, no shortness of breath Respiratory: no cough, no cough with sputum, no excessive sputum, no hemoptysis , no shortness of breath, no dyspnea on exertion Gastrointestinal: abdominal pain, nausea, vomiting, melena (Not sure-says stools are dark), no diarrhea, no constipation, no change in bowel habits, no hematemesis, no coffee ground emesis, no BRBPR Genitourinary Male: dysuria, no hematuria, no flank pain, no discharge, no urinary frequency, no urinary hesitancy, no nocturia Rectal: no pain Musculoskeletal: low back pain, muscle weakness, muscle cramps, myalgias, frequent falls, no neck stiffness, no neck pain, no shooting arm pain, no arm numbness/tingling, no shooting leg pain Integumentary: no rash, no pruritis, no redness, no sores, no wounds, no jaundice, no boils, no blisters Neurological: no seizures, no syncope Psychiatric: no anxiety, no memory loss, no change in sleep habits, no sleep disturbances, no insomnia, no hypersomnia Endocrine: no cold intolerance, no heat intolerance, no polyphagia, no excessive thirst, no polydipsia, no polyuria, no nocturia, no excessive sweating , no flushing, no weight change Hematologic/Lymphatic: no easy bruising, no easy bleeding Allergic/Immunologic: no urticaria, no allergic rhinitis, no wheezing Exam - Physical Exam Narrative exam: Lying comfortably - Constitutional Vitals: Temp Pulse Resp BP Pulse Ox 98.4 F 88 21 133/53 99 07/04/17 15:03 07/04/17 20:45 07/04/17 20:45 07/04/17 20:45 07/04/17 20:45 General appearance: Present: no acute distress, well-nourished - EENT Eyes: Present: PERRL ENT: hearing intact, clear oral mucosa - Neck Neck: Present: supple, normal ROM - Respiratory Respiratory effort: normal Respiratory: bilateral: CTA - Cardiovascular Heart rate: 90 Rhythm: regular Heart Sounds: Present: S1 & S2. Absent: rub, click - Extremities Extremities: no ischemia, pulses intact, pulses symmetrical, No edema Peripheral Pulses: within normal limits - Abdominal General gastrointestinal: Present: soft, non-tender, non-distended, normal bowel sounds Male genitourinary: Present: normal - Rectal Rectal Exam: other (OB ) - Integumentary Integumentary: Present: clear, warm, dry - Musculoskeletal Musculoskeletal: gait normal, strength equal bilaterally - Psychiatric Psychiatric: appropriate mood/affect, intact judgment & insight - Neurologic Neurologic: CNII-XII intact, moves all extremities Results - Labs CBC & Chem 7: 07/04/17 15:30 07/04/17 15:30 Labs: Laboratory Last Values WBC 17.9 K/mm3 (4.5-11.0) H 07/04/17 15:30 RBC 3.67 M/mm3 (3.65-5.03) 07/04/17 15:30 Hgb 7.2 gm/dl (11.8-15.2) L 07/04/17 15:30 Hct 24.0 % (35.5-45.6) L 07/04/17 15:30 MCV 66 fl (84-94) L 07/04/17 15:30 MCH 20 pg (28-32) L 07/04/17 15:30 MCHC 30 % (32-34) L 07/04/17 15:30 RDW 24.5 % (13.2-15.2) H 07/04/17 15:30 Plt Count 1109 K/mm3 (140-440) H* 07/04/17 15:30 Lymph % (Auto) 17.7 % (13.4-35.0) 07/04/17 15:30 [place] % (Auto) 7.1 % (0.0-7.3) 07/04/17 15:30 Eos % (Auto) 1.5 % (0.0-4.3) 07/04/17 15:30 Baso % (Auto) 1.1 % (0.0-1.8) 07/04/17 15:30 Lymph # 3.2 K/mm3 (1.2-5.4) 07/04/17 15:30 [place] # 1.3 K/mm3 (0.0-0.8) H 07/04/17 15:30 Eos # 0.3 K/mm3 (0.0-0.4) 07/04/17 15:30 Baso # 0.2 K/mm3 (0.0-0.1) H 07/04/17 15:30 Seg Neutrophils % 72.6 % (40.0-70.0) H 07/04/17 15:30 Seg Neutrophils # 13.0 K/mm3 (1.8-7.7) H 07/04/17 15:30 Sodium 142 mmol/L (137-145) 07/04/17 15:30 Potassium 4.3 mmol/L (3.6-5.0) 07/04/17 15:30 Chloride 100.4 mmol/L (98-107) 07/04/17 15:30 Carbon Dioxide 22 mmol/L (22-30) 07/04/17 15:30 Anion Gap 24 mmol/L 07/04/17 15:30 BUN 8 mg/dL (9-20) L 07/04/17 15:30 Creatinine 0.9 mg/dL (0.8-1.5) 07/04/17 15:30 Estimated GFR > 60 ml/min 07/04/17 15:30 BUN/Creatinine Ratio 8.88 % 07/04/17 15:30 Glucose 87 mg/dL (75-100) 07/04/17 15:30 Lactic Acid 1.40 mmol/L (0.7-2.0) 07/04/17 17:59 Calcium 9.9 mg/dL (8.4-10.2) 07/04/17 15:30 Magnesium 2.10 mg/dL (1.7-2.3) 07/04/17 15:30 Total Bilirubin 0.80 mg/dL (0.1-1.2) 07/04/17 15:30 AST 17 units/L (5-40) 07/04/17 15:30 ALT 9 units/L (7-56) 07/04/17 15:30 Alkaline Phosphatase 62 units/L (35-129) 07/04/17 15:30 Troponin T < 0.010 ng/mL (0.00-0.029) 07/04/17 15:30 Total Protein 8.7 g/dL (6.3-8.2) H 07/04/17 15:30 Albumin 4.7 g/dL (3.9-5) 07/04/17 15:30 Albumin/Globulin Ratio 1.2 % 07/04/17 15:30 TSH 0.488 mlU/mL (0.270-4.200) 07/04/17 15:30 Urine Color Yellow (Yellow) 07/04/17 20:05 Urine Turbidity Clear (Clear) 07/04/17 20:05 Urine pH 6.0 (5.0-7.0) 07/04/17 20:05 Ur Specific [place] 1.026 (1.003-1.030) 07/04/17 20:05 Urine Protein 100 mg/dl mg/dL (Negative) 07/04/17 20:05 Urine Glucose (UA) Neg mg/dL (Negative) 07/04/17 20:05 Urine Ketones 80 mg/dL (Negative) 07/04/17 20:05 Urine Blood Neg (Negative) 07/04/17 20:05 Urine Nitrite Neg (Negative) 07/04/17 20:05 Urine Bilirubin Neg (Negative) 07/04/17 20:05 Urine Urobilinogen 2.0 mg/dL (<2.0) 07/04/17 20:05 Ur Leukocyte Esterase Lg (Negative) 07/04/17 20:05 Urine WBC (Auto) 156.0 /HPF (0.0-6.0) H 07/04/17 20:05 Urine RBC (Auto) 21.0 /HPF (0.0-6.0) 07/04/17 20:05 U Epithel Cells (Auto) 2.0 /HPF (0-13.0) 07/04/17 20:05 Urine Bacteria (Auto) 1+ /HPF (Negative) 07/04/17 20:05 Ur Transition Epith Cell 2 /HPF 07/04/17 20:05 Urine Mucus 3+ /HPF 07/04/17 20:05 Salicylates < 0.3 mg/dL (2.8-20.0) L 07/04/17 15:30 Urine Opiates Screen Presumptive negative 07/04/17 20:05 Urine Methadone Screen Presumptive negative 07/04/17 20:05 Acetaminophen < 15.0 ug/mL (10.0-30.0) 07/04/17 15:30 Ur Barbiturates Screen Presumptive negative 07/04/17 20:05 Ur Phencyclidine Scrn Presumptive negative 07/04/17 20:05 Ur Amphetamines Screen Presumptive negative 07/04/17 20:05 U Benzodiazepines Scrn Presumptive negative 07/04/17 20:05 Urine Cocaine Screen Presumptive negative 07/04/17 20:05 U Marijuana (THC) Screen Presumptive positive 07/04/17 20:05 Drugs of Abuse Note Disclamer 07/04/17 20:05 Plasma/Serum Alcohol < 0.01 gm% (0-0.07) 07/04/17 15:30 Blood Type O POSITIVE 07/04/17 15:40 Antibody Screen Negative 07/04/17 15:40 - Imaging and Cardiology CT Scan - head: report reviewed (NAF) Assessment and Plan Advance Directives: Yes (Full code) VTE prophylaxis?: Mechanical Plan of care discussed with patient/family: Yes - Patient Problems (1) SIRS (systemic inflammatory response syndrome) Current Visit: Yes Status: Acute Plan to address problem: Sec to UTI and severe gastritis which is drug induced probably from Biaxin.Will hold Biaxin Cont Protonix and Amoxicillin.IV protonix drip and Ceftriaxone for UTI.IV fluids for volume depletion sec to vomiting. (2) UTI (urinary tract infection) Current Visit: Yes Status: Acute Qualifiers: Urinary tract infection type: acute cystitis Hematuria presence: without hematuria Indwelling urinary catheter type: I Encounter type: E Qualified Code(s): N30.00 - Acute cystitis without hematuria Plan to address problem: IV Rocephin pending urine cultures (3) Anemia due to acute blood loss Current Visit: No Status: Acute Plan to address problem: probably sec to GI bleed. Will transfuse 1 unit.Get Iron B12 and folic acid levels. (4) Thrombocytosis Current Visit: Yes Status: Acute Plan to address problem: Hematology consult requested Reactive?? (5) Weakness Current Visit: Yes Status: Acute (6) Gastric ulcer Current Visit: No Status: Acute Qualifiers: Gastric ulcer chronicity: acute Gastric ulcer complication status: with hemorrhage Qualified Code(s): K25.0 - Acute gastric ulcer with hemorrhage Plan to address problem: IV protonix GI consult with Dr Bethea group-Has seen Dr Bethea recently. (7) Recurrent falls Current Visit: Yes Status: Acute Plan to address problem: Sec to volume depletion Orthostatics ordered IV fluids for now (8) DVT prophylaxis Current Visit: Yes Status: Acute Plan to address problem: on scd's
[2017-07-04] MEDS ORDERED: TYLENOL PO PRN (21:28)
[2017-07-04] MEDS ORDERED: DULCOLAX PR PRN (21:28)
[2017-07-04] MEDS ORDERED: MILK OF MAGNESIA PO PRN (21:28)
[2017-07-04] MEDS ORDERED: ZOFRAN IV PRN (21:28)
[2017-07-04] MEDS ORDERED: ZOFRAN ODT PO PRN (21:54)
[2017-07-04] MEDS ORDERED: TRIMOX PO SCH (22:00)
[2017-07-04] MEDS ORDERED: ZOFRAN ODT PO SCH (22:00)
[2017-07-04] MEDS ORDERED: PROTONIX PO SCH (22:00)
[2017-07-04] MEDS ORDERED: PEPCID IV SCH (22:00)
[2017-07-04] MEDS ORDERED: PROTONIX 80 MG in NACL 0.9% 100 ML IV SCH (22:00)
[2017-07-04] MEDS: DILAUDID IV PRN (23:18)
[2017-07-04] MEDS: D5NS 1,000 ML IV SCH (23:26)
[2017-07-04] MEDS ORDERED: NACL 0.9% 500 ML 500 ML IV ONE (23:51)
[2017-07-05 05:48] LABS: Basophils % (Auto) 0.6 % (0.0-1.8); Eosinophils % (Auto) 1.7 % (0.0-4.3); Hematocrit 21.6 % (35.5-45.6); Hemoglobin 6.5 gm/dl (11.8-15.2); Mean Corpuscular HGB Conc 30 % (32-34); Red Blood Count 3.25 M/mm3 (3.65-5.03); White Blood Count 15.3 K/mm3 (4.5-11.0)
[2017-07-05 06:05] LABS: Mean Corpuscular Hemoglobin 20 pg (28-32); Mean Corpuscular Volume 67 fl (84-94)
[2017-07-05] MEDS: ROCEPHIN/NS 2 GM/100 ML 2 GM/100 ML BAG IV SCH (06:06)
[2017-07-05 06:09] LABS: Platelet Count 1257 K/mm3 (140-440)
[2017-07-05 06:48] LABS: Alanine Aminotransferase 5 units/L (7-56); Albumin 3.6 g/dL (3.9-5); Albumin/Globulin Ratio 1.1 %; Alkaline Phosphatase 45 units/L (35-129); Anion Gap 15 mmol/L; BUN/Creatinine Ratio 7.77; Blood Urea Nitrogen 7 mg/dL (9-20); Calcium 8.5 mg/dL (8.4-10.2); Carbon Dioxide 25 mmol/L (22-30); Chloride 102.7 mmol/L (98-107); Glucose 87 mg/dL (75-100); Potassium 3.1 mmol/L (3.6-5.0); Sodium 140 mmol/L (137-145); Total Protein 6.8 g/dL (6.3-8.2)
[2017-07-05] MEDS: DILAUDID IV PRN ×4 (10:55→21:43)
[2017-07-05] MEDS ORDERED: NACL 0.9% 500 ML 500 ML IV ONE (11:00)
[2017-07-05] MEDS ORDERED: PHENERGAN PO PRN (11:00)
--- NOTE | 2017-07-05 11:07 | Progress Note ---
Assessment and Plan Assessment and plan: 27 y/o AAM with hx of H pylori diagnosed recently and on day 9 of triple drug therapy ( Amoxicillin Biaxin 1gm po bid Protonix 50 bid)has been vomiting for 5 days 3 to 4 times a day.Feels very weak and apparently fell 2 to 3 times over the last 48 hrs.Also body aches all over.No fever.Dysuria present.Some epigastric discomfort present.Was diagnosed with H Pylori and 2 gastric ulcers recently - hence the triple drug regimen.No BM because of decreased food intake.No syncope.Feels Light headed and weak from recurrent vomiting.Exacerbating ffactor -H pylori medication. - Patient Problems (1) gastric ulcers: * Continue PPI. GI evaluation. (2) UTI (urinary tract infection) Current Visit: Yes Status: Acute Qualifiers: Urinary tract infection type: acute cystitis Hematuria presence: without hematuria Indwelling urinary catheter type: I Encounter type: E Qualified Code(s): N30.00 - Acute cystitis without hematuria Plan to address problem: IV Rocephin pending urine cultures no growth still. Sec to UTI and severe gastritis which is drug induced probably from Biaxin.Will hold Biaxin Cont Protonix and Amoxicillin.IV protonix drip and Ceftriaxone for UTI.IV fluids for volume depletion sec to vomiting. (3) Anemia due to acute blood loss Current Visit: No Status: Acute Plan to address problem: probably sec to GI bleed. Hemoglobin down to 6.5. From 7.5. Will transfuse additional 1 unit packed red blood cells. We'll check hemolysis labs. Await hematology input. Get Iron B12 and folic acid levels. (4) Thrombocytosis Current Visit: Yes Status: Acute Plan to address problem: Hematology consult requested Reactive?? (5) Weakness Current Visit: Yes Status: Acute Continue D5 half address. If no improvement will obtain PT OT evaluation and treat (6) Gastric ulcer Current Visit: No Status: Acute Qualifiers: Gastric ulcer chronicity: acute Gastric ulcer complication status: with hemorrhage Qualified Code(s): K25.0 - Acute gastric ulcer with hemorrhage Plan to address problem: IV protonix GI consult with Dr Bethea group-Has seen Dr Bethea recently. (7) Recurrent falls Current Visit: Yes Status: Acute Plan to address problem: Sec to volume depletion Orthostatics ordered IV fluids for now (8) hypokalemia * Replace (9) persistent nausea * Give a trial of Phenergan (10)DVT prophylaxis Current Visit: Yes Status: Acute Plan to address problem: on scd's Patient's family indicated above findings. The high probability of a clinically significant, sudden or life threatening deterioration of the [hematology] system(s) required my full and direct attention, intervention and personal management. The aggregate critical care time was [35] minutes. This time is in addition to time spent performing reported procedures but includes the following: [X] Data Review and interpretation [X] Patient assessment and monitoring of vital signs [X] Documentation [X Medication orders and management History Interval history: Patient seen and examined today continues to complain of bilateral lower extremity weakness. Also reports nausea with no vomiting at this time. Still generalized weakness sensation. Hospitalist Physical - Physical exam Narrative exam: VITAL SIGNS: Reviewed. GENERAL: The patient appeared well nourished and normally developed. Obese. Vital signs as documented. HEAD: No signs of head trauma. EYES: Pupils are equal. Extraocular motions intact. EARS: Hearing grossly intact. MOUTH: Oropharynx is normal. NECK: No adenopathy, no JVD. CHEST: Chest with clear breath sounds bilaterally. No wheezes, rales, or rhonchi. CARDIAC: Regular rate and rhythm. S1 and S2, without murmurs, gallops, or rubs. VASCULAR: No Edema. Peripheral pulses normal and equal in all extremities. ABDOMEN: Soft, without detectable tenderness. No sign of distention. No rebound or guarding, and no masses palpated. Bowel Sounds normal. MUSCULOSKELETAL: Good range of motion of all major joints. Extremities without clubbing, cyanosis or edema. NEUROLOGIC EXAM: Alert and oriented x 3. No focal sensory or strength deficits. Speech normal. Follows commands. PSYCHIATRIC: Mood normal. SKIN: No rash or lesions. - Constitutional Vitals: Temp Pulse Resp BP Pulse Ox 99.3 F 76 16 121/60 98 07/05/17 07:18 07/05/17 07:18 07/05/17 07:18 07/05/17 07:18 07/05/17 07:18 General appearance: Present: no acute distress, well-nourished Results - Labs CBC & Chem 7: 07/05/17 05:32 07/05/17 05:32 Labs: Laboratory Last Values WBC 15.3 K/mm3 (4.5-11.0) H 07/05/17 05:32 RBC 3.25 M/mm3 (3.65-5.03) L 07/05/17 05:32 Hgb 6.5 gm/dl (11.8-15.2) L 07/05/17 05:32 Hct 21.6 % (35.5-45.6) L 07/05/17 05:32 MCV 67 fl (84-94) L 07/05/17 05:32 MCH 20 pg (28-32) L 07/05/17 05:32 MCHC 30 % (32-34) L 07/05/17 05:32 RDW 25.0 % (13.2-15.2) H 07/05/17 05:32 Plt Count 1257 K/mm3 (140-440) H* 07/05/17 05:32 Lymph % (Auto) 19.7 % (13.4-35.0) 07/05/17 05:32 [place] % (Auto) 8.9 % (0.0-7.3) H 07/05/17 05:32 Eos % (Auto) 1.7 % (0.0-4.3) 07/05/17 05:32 Baso % (Auto) 0.6 % (0.0-1.8) 07/05/17 05:32 Lymph # 3.0 K/mm3 (1.2-5.4) 07/05/17 05:32 [place] # 1.4 K/mm3 (0.0-0.8) H 07/05/17 05:32 Eos # 0.3 K/mm3 (0.0-0.4) 07/05/17 05:32 Baso # 0.1 K/mm3 (0.0-0.1) 07/05/17 05:32 Seg Neutrophils % 69.1 % (40.0-70.0) 07/05/17 05:32 Seg Neutrophils # 10.6 K/mm3 (1.8-7.7) H 07/05/17 05:32 Sodium 140 mmol/L (137-145) 07/05/17 05:32 Potassium 3.1 mmol/L (3.6-5.0) L D 07/05/17 05:32 Chloride 102.7 mmol/L (98-107) 07/05/17 05:32 Carbon Dioxide 25 mmol/L (22-30) 07/05/17 05:32 Anion Gap 15 mmol/L 07/05/17 05:32 BUN 7 mg/dL (9-20) L 07/05/17 05:32 Creatinine 0.9 mg/dL (0.8-1.5) 07/05/17 05:32 Estimated GFR > 60 ml/min 07/05/17 05:32 BUN/Creatinine Ratio 7.77 % 07/05/17 05:32 Glucose 87 mg/dL (75-100) 07/05/17 05:32 Hemoglobin A1c < 4.2 % (4-6) 07/04/17 15:30 Lactic Acid 1.40 mmol/L (0.7-2.0) 07/04/17 17:59 Calcium 8.5 mg/dL (8.4-10.2) 07/05/17 05:32 Magnesium 2.10 mg/dL (1.7-2.3) 07/04/17 15:30 Total Bilirubin 0.70 mg/dL (0.1-1.2) 07/05/17 05:32 AST 11 units/L (5-40) 07/05/17 05:32 ALT 5 units/L (7-56) L 07/05/17 05:32 Alkaline Phosphatase 45 units/L (35-129) 07/05/17 05:32 Troponin T < 0.010 ng/mL (0.00-0.029) 07/04/17 15:30 Total Protein 6.8 g/dL (6.3-8.2) D 07/05/17 05:32 Albumin 3.6 g/dL (3.9-5) L 07/05/17 05:32 Albumin/Globulin Ratio 1.1 % 07/05/17 05:32 TSH 0.488 mlU/mL (0.270-4.200) 07/04/17 15:30 Urine Color Yellow (Yellow) 07/04/17 20:05 Urine Turbidity Clear (Clear) 07/04/17 20:05 Urine pH 6.0 (5.0-7.0) 07/04/17 20:05 Ur Specific [place] 1.026 (1.003-1.030) 07/04/17 20:05 Urine Protein 100 mg/dl mg/dL (Negative) 07/04/17 20:05 Urine Glucose (UA) Neg mg/dL (Negative) 07/04/17 20:05 Urine Ketones 80 mg/dL (Negative) 07/04/17 20:05 Urine Blood Neg (Negative) 07/04/17 20:05 Urine Nitrite Neg (Negative) 07/04/17 20:05 Urine Bilirubin Neg (Negative) 07/04/17 20:05 Urine Urobilinogen 2.0 mg/dL (<2.0) 07/04/17 20:05 Ur Leukocyte Esterase Lg (Negative) 07/04/17 20:05 Urine WBC (Auto) 156.0 /HPF (0.0-6.0) H 07/04/17 20:05 Urine RBC (Auto) 21.0 /HPF (0.0-6.0) 07/04/17 20:05 U Epithel Cells (Auto) 2.0 /HPF (0-13.0) 07/04/17 20:05 Urine Bacteria (Auto) 1+ /HPF (Negative) 07/04/17 20:05 Ur Transition Epith Cell 2 /HPF 07/04/17 20:05 Urine Mucus 3+ /HPF 07/04/17 20:05 Salicylates < 0.3 mg/dL (2.8-20.0) L 07/04/17 15:30 Urine Opiates Screen Presumptive negative 07/04/17 20:05 Urine Methadone Screen Presumptive negative 07/04/17 20:05 Acetaminophen < 15.0 ug/mL (10.0-30.0) 07/04/17 15:30 Ur Barbiturates Screen Presumptive negative 07/04/17 20:05 Ur Phencyclidine Scrn Presumptive negative 07/04/17 20:05 Ur Amphetamines Screen Presumptive negative 07/04/17 20:05 U Benzodiazepines Scrn Presumptive negative 07/04/17 20:05 Urine Cocaine Screen Presumptive negative 07/04/17 20:05 U Marijuana (THC) Screen Presumptive positive 07/04/17 20:05 Drugs of Abuse Note Disclamer 07/04/17 20:05 Plasma/Serum Alcohol < 0.01 gm% (0-0.07) 07/04/17 15:30 Blood Type O POSITIVE 07/04/17 15:40 Antibody Screen Negative 07/04/17 15:40 Crossmatch See Detail 07/04/17 15:40 - Imaging and Cardiology CT Scan - head: image reviewed (no acute pathology)
[2017-07-05 12:26] LABS: Iron 9 ug/dL (49-181); Total Iron Binding Capacity 334 mcg/dL (250-450)
[2017-07-05] MEDS: KCL 10MEQ/100ML 10 MEQ/100 ML BAG IV SCH ×4 (13:46→18:33)
--- NOTE | 2017-07-05 15:47 | Hem/Onc Consultation ---
History of Present Illness - Reason for Consult Consult date: 07/05/17 Requesting physician: FRANCISCO BRUNO - History of Present Illness 27 yo patient admit with symptomatic anemia. He was recently discharged following admit in which he had EGD the revealed multiple peptic ulcers He had 2 units transfused and then he was discharged on triple therapy for H. Pylori. Now with symptomatic anemia, continued melena and thrombocytosis likely reactive. Plan . 1. Agree with transfusion 2. Ferrlecit now, recheck ferritin after transfusion 3. GI eval 4. If platelet count does not start to trend down by tomorrow, may need to add Hydrea to suppress. Past History Past Medical History: anemia (iron def , H pylori ), GERD, other (Gastric ulcerx2 and H pylori) Past Surgical History: No surgical history Social history: no significant social history, lives with family, full code. denies: smoking, alcohol abuse Family history: hypertension Medications and Allergies Allergies Allergy/AdvReac Type Severity Reaction Status Date / Time No Known Allergies Allergy Verified 07/04/17 15:03 Home Medications Medication Instructions Recorded Confirmed Last Taken Type Acetaminophen [Acetaminophen TAB] 325 mg PO Q4H PRN #30 tablet 06/16/17 Unknown Rx Pantoprazole [Protonix TAB] 40 mg PO DAILY #30 tablet 06/16/17 07/04/17 Unknown Rx Amoxicillin [Trimox CAP] 500 mg PO BID 07/04/17 07/04/17 Unknown History Azithromycin [Zithromax] 250 mg PO QDAY 07/04/17 07/04/17 Unknown History Ondansetron [Zofran Odt] 4 mg PO Q4H 07/04/17 07/04/17 Unknown History Active Meds: Active Medications Acetaminophen (Tylenol) 650 mg PO Q4H PRN PRN Reason: Pain MILD(1-3)/Fever >100.5/KONG Bisacodyl (Dulcolax) 10 mg MO QDAY PRN PRN Reason: Constipation unrelieved by MOM Hydromorphone HCl (Dilaudid) 1 mg IV Q3H PRN PRN Reason: Pain , Severe (7-10) Last Admin: 07/05/17 14:00 Dose: 1 mg Dextrose/Sodium Chloride (D5ns) 1,000 mls @ 100 mls/hr IV DIRECT KARLIE Last Admin: 07/04/17 23:26 Dose: 100 mls/hr Pantoprazole Sodium 80 mg/ (Sodium Chloride) 100 mls @ 10 mls/hr IV DIRECT KARLIE PRN Reason: 8 MG/HR Ceftriaxone Sodium (Rocephin/Ns 2 Gm/100 Ml) 2 gm in 100 mls @ 200 mls/hr IV Q24H KARLIE PRN Reason: Protocol Last Admin: 07/05/17 06:06 Dose: 200 mls/hr Ferric Sodium Gluconate Complex 125 mg/ Sodium Chloride 110 mls @ 100 mls/hr IV ONCE ONE Stop: 07/05/17 16:39 Magnesium Hydroxide (Milk Of Magnesia) 30 ml PO Q4H PRN PRN Reason: Constipation Ondansetron HCl (Zofran) 4 mg IV Q3H PRN PRN Reason: N/V unrelieved by Reglan Ondansetron HCl (Zofran Odt) 4 mg PO Q4H PRN PRN Reason: Dyspepsia Promethazine HCl (Phenergan) 25 mg PO Q6H PRN PRN Reason: Nausea And Vomiting Last Admin: 07/05/17 11:22 Dose: 25 mg Review of Systems Cardiovascular: chest pain (elevated platelet count thought to be reactive thrombocytosis to severe iron def ) Gastrointestinal: nausea, vomiting, melena Musculoskeletal: myalgias Exam - Constitutional Vitals: Last Vital Signs Temp 99.3 F 07/05/17 07:18 Pulse 76 07/05/17 07:18 Resp 18 07/05/17 14:00 BP 121/60 07/05/17 07:18 Pulse Ox 98 07/05/17 07:18 Results - Labs lab Results: Laboratory Results - last 24 hr 07/04/17 07/04/17 07/05/17 20:05 20:05 05:32 WBC 15.3 H RBC 3.25 L Hgb 6.5 L Hct 21.6 L MCV 67 L MCH 20 L MCHC 30 L RDW 25.0 H Plt Count 1257 H* Lymph % (Auto) 19.7 [place] % (Auto) 8.9 H Eos % (Auto) 1.7 Baso % (Auto) 0.6 Lymph # 3.0 [place] # 1.4 H Eos # 0.3 Baso # 0.1 Seg Neutrophils % 69.1 Seg Neutrophils # 10.6 H Sodium Potassium Chloride Carbon Dioxide Anion Gap BUN Creatinine Estimated GFR BUN/Creatinine Ratio Glucose Calcium Iron TIBC Ferritin Total Bilirubin AST ALT Alkaline Phosphatase Total Protein Albumin Albumin/Globulin Ratio Vitamin B12 Urine Color Yellow Urine Turbidity Clear Urine pH 6.0 Ur Specific [place] 1.026 Urine Protein 100 mg/dl Urine Glucose (UA) Neg Urine Ketones 80 Urine Blood Neg Urine Nitrite Neg Urine Bilirubin Neg Urine Urobilinogen 2.0 Ur Leukocyte Esterase Lg Urine WBC (Auto) 156.0 H Urine RBC (Auto) 21.0 U Epithel Cells (Auto) 2.0 Urine Bacteria (Auto) 1+ Ur Transition Epith Cell 2 Urine Mucus 3+ Urine Opiates Screen Presumptive negative Urine Methadone Screen Presumptive negative Ur Barbiturates Screen Presumptive negative Ur Phencyclidine Scrn Presumptive negative Ur Amphetamines Screen Presumptive negative U Benzodiazepines Scrn Presumptive negative Urine Cocaine Screen Presumptive negative U Marijuana (THC) Screen Presumptive positive Drugs of Abuse Note Disclamer 07/05/17 07/05/17 07/05/17 05:32 11:29 11:29 WBC RBC Hgb Hct MCV MCH MCHC RDW Plt Count Lymph % (Auto) [place] % (Auto) Eos % (Auto) Baso % (Auto) Lymph # [place] # Eos # Baso # Seg Neutrophils % Seg Neutrophils # Sodium 140 Potassium 3.1 L D Chloride 102.7 Carbon Dioxide 25 Anion Gap 15 BUN 7 L Creatinine 0.9 Estimated GFR > 60 BUN/Creatinine Ratio 7.77 Glucose 87 Calcium 8.5 Iron 9 L TIBC 334 Ferritin 3.5 L Total Bilirubin 0.70 AST 11 ALT 5 L Alkaline Phosphatase 45 Total Protein 6.8 D Albumin 3.6 L Albumin/Globulin Ratio 1.1 Vitamin B12 Urine Color Urine Turbidity Urine pH Ur Specific [place] Urine Protein Urine Glucose (UA) Urine Ketones Urine Blood Urine Nitrite Urine Bilirubin Urine Urobilinogen Ur Leukocyte Esterase Urine WBC (Auto) Urine RBC (Auto) U Epithel Cells (Auto) Urine Bacteria (Auto) Ur Transition Epith Cell Urine Mucus Urine Opiates Screen Urine Methadone Screen Ur Barbiturates Screen Ur Phencyclidine Scrn Ur Amphetamines Screen U Benzodiazepines Scrn Urine Cocaine Screen U Marijuana (THC) Screen Drugs of Abuse Note 07/05/17 11:29 WBC RBC Hgb Hct MCV MCH MCHC RDW Plt Count Lymph % (Auto) [place] % (Auto) Eos % (Auto) Baso % (Auto) Lymph # [place] # Eos # Baso # Seg Neutrophils % Seg Neutrophils # Sodium Potassium Chloride Carbon Dioxide Anion Gap BUN Creatinine Estimated GFR BUN/Creatinine Ratio Glucose Calcium Iron TIBC Ferritin Total Bilirubin AST ALT Alkaline Phosphatase Total Protein Albumin Albumin/Globulin Ratio Vitamin B12 921.9 H Urine Color Urine Turbidity Urine pH Ur Specific [place] Urine Protein Urine Glucose (UA) Urine Ketones Urine Blood Urine Nitrite Urine Bilirubin Urine Urobilinogen Ur Leukocyte Esterase Urine WBC (Auto) Urine RBC (Auto) U Epithel Cells (Auto) Urine Bacteria (Auto) Ur Transition Epith Cell Urine Mucus Urine Opiates Screen Urine Methadone Screen Ur Barbiturates Screen Ur Phencyclidine Scrn Ur Amphetamines Screen U Benzodiazepines Scrn Urine Cocaine Screen U Marijuana (THC) Screen Drugs of Abuse Note
--- NOTE | 2017-07-05 16:16 | Consultation ---
History of Present Illness - Reason for Consult Consult date: 07/05/17 Past History Past Medical History: anemia (iron def , H pylori ), GERD, other (Gastric ulcerx2 and H pylori) Past Surgical History: No surgical history Social history: no significant social history, lives with family, full code. denies: smoking, alcohol abuse Family history: hypertension Medications and Allergies Allergies Allergy/AdvReac Type Severity Reaction Status Date / Time No Known Allergies Allergy Verified 07/04/17 15:03 Home Medications Medication Instructions Recorded Confirmed Last Taken Type Acetaminophen [Acetaminophen TAB] 325 mg PO Q4H PRN #30 tablet 06/16/17 Unknown Rx Pantoprazole [Protonix TAB] 40 mg PO DAILY #30 tablet 06/16/17 07/04/17 Unknown Rx Amoxicillin [Trimox CAP] 500 mg PO BID 07/04/17 07/04/17 Unknown History Azithromycin [Zithromax] 250 mg PO QDAY 07/04/17 07/04/17 Unknown History Ondansetron [Zofran Odt] 4 mg PO Q4H 07/04/17 07/04/17 Unknown History Active Meds: Active Medications Acetaminophen (Tylenol) 650 mg PO Q4H PRN PRN Reason: Pain MILD(1-3)/Fever >100.5/KONG Bisacodyl (Dulcolax) 10 mg MT QDAY PRN PRN Reason: Constipation unrelieved by MOM Hydromorphone HCl (Dilaudid) 1 mg IV Q3H PRN PRN Reason: Pain , Severe (7-10) Last Admin: 07/05/17 14:00 Dose: 1 mg Dextrose/Sodium Chloride (D5ns) 1,000 mls @ 100 mls/hr IV DIRECT KARLIE Last Admin: 07/04/17 23:26 Dose: 100 mls/hr Pantoprazole Sodium 80 mg/ (Sodium Chloride) 100 mls @ 10 mls/hr IV DIRECT KARLIE PRN Reason: 8 MG/HR Ceftriaxone Sodium (Rocephin/Ns 2 Gm/100 Ml) 2 gm in 100 mls @ 200 mls/hr IV Q24H KARLIE PRN Reason: Protocol Last Admin: 07/05/17 06:06 Dose: 200 mls/hr Ferric Sodium Gluconate Complex 125 mg/ Sodium Chloride 110 mls @ 100 mls/hr IV ONCE ONE Stop: 07/05/17 17:35 Magnesium Hydroxide (Milk Of Magnesia) 30 ml PO Q4H PRN PRN Reason: Constipation Ondansetron HCl (Zofran) 4 mg IV Q3H PRN PRN Reason: N/V unrelieved by Reglan Ondansetron HCl (Zofran Odt) 4 mg PO Q4H PRN PRN Reason: Dyspepsia Promethazine HCl (Phenergan) 25 mg PO Q6H PRN PRN Reason: Nausea And Vomiting Last Admin: 07/05/17 11:22 Dose: 25 mg Exam - Constitutional Vitals: Temp Pulse Resp BP Pulse Ox 99.3 F 76 18 121/60 98 07/05/17 07:18 07/05/17 07:18 07/05/17 14:30 07/05/17 07:18 07/05/17 07:18 Results - Labs CBC & Chem 7: 07/05/17 05:32 07/05/17 05:32 Labs: Abnormal lab results 07/04/17 07/05/17 07/05/17 Range/Units 20:05 05:32 05:32 WBC 15.3 H (4.5-11.0) K/mm3 RBC 3.25 L (3.65-5.03) M/mm3 Hgb 6.5 L (11.8-15.2) gm/dl Hct 21.6 L (35.5-45.6) % MCV 67 L (84-94) fl MCH 20 L (28-32) pg MCHC 30 L (32-34) % RDW 25.0 H (13.2-15.2) % Plt Count 1257 H* (140-440) K/mm3 [place] % (Auto) 8.9 H (0.0-7.3) % [place] # 1.4 H (0.0-0.8) K/mm3 Seg Neutrophils # 10.6 H (1.8-7.7) K/mm3 Potassium 3.1 L D (3.6-5.0) mmol/L BUN 7 L (9-20) mg/dL Iron (49-181) ug/dL Ferritin (13.0-400.0) ng/mL ALT 5 L (7-56) units/L Albumin 3.6 L (3.9-5) g/dL Vitamin B12 (211-911) pg/mL Urine WBC (Auto) 156.0 H (0.0-6.0) /HPF 07/05/17 07/05/17 07/05/17 Range/Units 11:29 11:29 11:29 WBC (4.5-11.0) K/mm3 RBC (3.65-5.03) M/mm3 Hgb (11.8-15.2) gm/dl Hct (35.5-45.6) % MCV (84-94) fl MCH (28-32) pg MCHC (32-34) % RDW (13.2-15.2) % Plt Count (140-440) K/mm3 [place] % (Auto) (0.0-7.3) % [place] # (0.0-0.8) K/mm3 Seg Neutrophils # (1.8-7.7) K/mm3 Potassium (3.6-5.0) mmol/L BUN (9-20) mg/dL Iron 9 L (49-181) ug/dL Ferritin 3.5 L (13.0-400.0) ng/mL ALT (7-56) units/L Albumin (3.9-5) g/dL Vitamin B12 921.9 H (211-911) pg/mL Urine WBC (Auto) (0.0-6.0) /HPF Assessment and Plan Pt with iron deficiency anemia of unclear etiology. See Dictated note. Imp - Etiology unclear. Stool light brown. No active bleed. Rec - Agree with iron infusion - N/V likely exacerbated due to H pylori meds. R/o biliary colic. - may need Pillcam as outpatient
[2017-07-05] MEDS ORDERED: NULECIT 125 MG in NACL 0.9% 100 ML IV ONE (16:30)
[2017-07-06] MEDS: DILAUDID IV PRN ×2 (05:18→08:58)
[2017-07-06] MEDS: ROCEPHIN/NS 2 GM/100 ML 2 GM/100 ML BAG IV SCH (06:19)
[2017-07-06] MEDS: D5NS 1,000 ML IV SCH (06:19)
[2017-07-06] MEDS: PROTONIX PO SCH (08:59)
[2017-07-06 09:13] LABS: Hematocrit 24.2 % (35.5-45.6); Hemoglobin 7.6 gm/dl (11.8-15.2); Mean Corpuscular HGB Conc 32 % (32-34); Red Blood Count 3.59 M/mm3 (3.65-5.03)
[2017-07-06 09:16] LABS: Alanine Aminotransferase 6 units/L (7-56); Albumin 3.6 g/dL (3.9-5); Albumin/Globulin Ratio 1.2 %; Alkaline Phosphatase 43 units/L (35-129); Anion Gap 15 mmol/L; Blood Urea Nitrogen 4 mg/dL (9-20); Calcium 8.6 mg/dL (8.4-10.2); Carbon Dioxide 26 mmol/L (22-30); Chloride 105.1 mmol/L (98-107); Glucose 88 mg/dL (75-100); Potassium 3.7 mmol/L (3.6-5.0); Sodium 142 mmol/L (137-145); Total Protein 6.7 g/dL (6.3-8.2)
[2017-07-06 09:17] LABS: Mean Corpuscular Volume 67 fl (84-94)
[2017-07-06 09:18] LABS: Mean Corpuscular Hemoglobin 21 pg (28-32); Red Cell Distribution Width 25.4 % (13.2-15.2)
[2017-07-06 09:21] LABS: Platelet Count 1245 K/mm3 (140-440)
[2017-07-06] MEDS ORDERED: ROBITUSSIN AC PO PRN (09:37)
[2017-07-06] MEDS ORDERED: PROVENTIL IH ONE (09:37)
[2017-07-06 10:05] LABS: Creatine Kinase 59 units/L (55-170)
[2017-07-06 10:08] LABS: Creatine Kinase MB < 1.0 ng/mL (0.0-4.0)
--- NOTE | 2017-07-06 10:21 | Ultrasound Report ---
Abdominal sonogram: History: Gallbladder disease. Findings: Limited study due to large patient body habitus, bowel gas and overlying rib artifacts. Mildly echogenic liver may be related to fatty infiltration. No intrahepatic or extrahepatic duct dilatation or mass. Gallbladder wall thickness 2.5 mm. No definite calculi identified in the gallbladder. Evidence of sludge. Common bile duct diameter 4.2 mm. Right kidney 12.4 x 5.3 x 5.2 cm. Cortical thickness 1.2 cm. Left kidney 13.8 x 6.6 x 5.5 cm. Cortical thickness is 1.8 cm. Spleen measures 10.7 cm. Pancreas not well visualized. Impression: Tip bile sludge within the gallbladder. Probable fatty infiltration liver.
--- NOTE | 2017-07-06 10:37 | Progress Note ---
Assessment and Plan Assessment and plan: 27 y/o AAM with hx of H pylori diagnosed recently and on day 9 of triple drug therapy ( Amoxicillin Biaxin 1gm po bid Protonix 50 bid)has been vomiting for 5 days 3 to 4 times a day.Feels very weak and apparently fell 2 to 3 times over the last 48 hrs.Also body aches all over.No fever.Dysuria present.Some epigastric discomfort present.Was diagnosed with H Pylori and 2 gastric ulcers recently - hence the triple drug regimen.No BM because of decreased food intake.No syncope.Feels Light headed and weak from recurrent vomiting.Exacerbating factor -H pylori medication. Following a rapid response called with acute respiratory distress. Pleuritic chest pain. * D-dimer is elevated. We'll obtain a stat CTA to rule out pulmonary embolism * Start nebulizer treatment * Discontinue Dilaudid loaded, stat chest x-ray evaluated for aspiration - Patient Problems (1) gastric ulcers: * Continue PPI. GI evaluation. (2) UTI (urinary tract infection)-complex UTI-Male Current Visit: Yes Status: Acute Qualifiers: Urinary tract infection type: acute cystitis Hematuria presence: without hematuria Indwelling urinary catheter type: I Encounter type: E Qualified Code(s): N30.00 - Acute cystitis without hematuria Plan to address problem: IV Rocephin pending urine cultures no growth still. Sec to UTI and severe gastritis which is drug induced probably from Biaxin.Will hold Biaxin Cont Protonix and Amoxicillin.IV protonix drip and Ceftriaxone for UTI.IV fluids for volume depletion sec to vomiting. (3) Anemia due to acute blood loss Current Visit: No Status: Acute Plan to address problem: Awaiting stool for occult blood. Per GI rectal exam unrevealing. Hemoglobin 7.3 FOLLOWING 2 UNITS PRBC. Will recheck IN AM. Severe Iron DEF anemia-Iron transfusion per Hematology (4) Thrombocytosis Current Visit: Yes Status: Acute Plan to address problem: Hematology consult requested Reactive?? (5) Weakness Current Visit: Yes Status: Acute Continue D5 half address. If no improvement will obtain PT OT evaluation and treat (6) Gastric ulcer Current Visit: No Status: Acute Qualifiers: Gastric ulcer chronicity: acute Gastric ulcer complication status: with hemorrhage Qualified Code(s): K25.0 - Acute gastric ulcer with hemorrhage Plan to address problem: IV protonix GI consult with Dr Bethea group-Has seen Dr Bethea recently. (7) Recurrent falls Current Visit: Yes Status: Acute Plan to address problem: Sec to volume depletion Orthostatics ordered IV fluids for now (8) hypokalemia * Replace (9) persistent nausea * Give a trial of Phenergan (10)DVT prophylaxis Current Visit: Yes Status: Acute Plan to address problem: on scd's Patient's family indicated above findings. The high probability of a clinically significant, sudden or life threatening deterioration of the [hematology] system(s) required my full and direct attention, intervention and personal management. The aggregate critical care time was [35] minutes. This time is in addition to time spent performing reported procedures but includes the following: [X] Data Review and interpretation [X] Patient assessment and monitoring of vital signs [X] Documentation [X Medication orders and management History Interval history: Rapid response called on the patient today with persistent intractable cough and sensation of small draining across his chest following the administration of Dilaudid. Same time patient also was lying supine drank apple juice. Hospitalist Physical - Physical exam Narrative exam: VITAL SIGNS: Reviewed. GENERAL: The patient appeared well nourished and normally developed. Obese. Vital signs as documented. HEAD: No signs of head trauma. EYES: Pupils are equal. Extraocular motions intact. EARS: Hearing grossly intact. MOUTH: Oropharynx is normal. NECK: No adenopathy, no JVD. CHEST: Chest with crackles breath sounds bilaterally. No wheezes, rales, or rhonchi. Increased work of breathing CARDIAC: Regular rate and rhythm. S1 and S2, without murmurs, gallops, or rubs. VASCULAR: No Edema. Peripheral pulses normal and equal in all extremities. ABDOMEN: Soft, without detectable tenderness. No sign of distention. No rebound or guarding, and no masses palpated. Bowel Sounds normal. MUSCULOSKELETAL: Good range of motion of all major joints. Extremities without clubbing, cyanosis or edema. NEUROLOGIC EXAM: Alert and oriented x 3. No focal sensory or strength deficits. Speech normal. Follows commands. PSYCHIATRIC: Mood anxious SKIN: No rash or lesions. - Constitutional Vitals: Temp Pulse Resp BP Pulse Ox 98.7 F 72 20 112/68 98 07/06/17 08:00 07/06/17 08:00 07/06/17 08:00 07/06/17 08:00 07/06/17 07:56 General appearance: Present: no acute distress, well-nourished Results - Labs CBC & Chem 7: 07/06/17 08:21 07/06/17 08:21 Labs: Laboratory Last Values WBC 16.0 K/mm3 (4.5-11.0) H 07/06/17 08:21 RBC 3.59 M/mm3 (3.65-5.03) L 07/06/17 08:21 Hgb 7.6 gm/dl (11.8-15.2) L 07/06/17 08:21 Hct 24.2 % (35.5-45.6) L 07/06/17 08:21 MCV 67 fl (84-94) L 07/06/17 08:21 MCH 21 pg (28-32) L 07/06/17 08:21 MCHC 32 % (32-34) 07/06/17 08:21 RDW 25.4 % (13.2-15.2) H 07/06/17 08:21 Plt Count 1245 K/mm3 (140-440) H* 07/06/17 08:21 Lymph % (Auto) 19.7 % (13.4-35.0) 07/05/17 05:32 [place] % (Auto) 8.9 % (0.0-7.3) H 07/05/17 05:32 Eos % (Auto) 1.7 % (0.0-4.3) 07/05/17 05:32 Baso % (Auto) 0.6 % (0.0-1.8) 07/05/17 05:32 Lymph # 3.0 K/mm3 (1.2-5.4) 07/05/17 05:32 [place] # 1.4 K/mm3 (0.0-0.8) H 07/05/17 05:32 Eos # 0.3 K/mm3 (0.0-0.4) 07/05/17 05:32 Baso # 0.1 K/mm3 (0.0-0.1) 07/05/17 05:32 Seg Neutrophils % 69.1 % (40.0-70.0) 07/05/17 05:32 Seg Neutrophils # 10.6 K/mm3 (1.8-7.7) H 07/05/17 05:32 D-Dimer 329.59 ng/mlDDU (0-234) H 07/06/17 09:42 Sodium 142 mmol/L (137-145) 07/06/17 08:21 Potassium 3.7 mmol/L (3.6-5.0) 07/06/17 08:21 Chloride 105.1 mmol/L (98-107) 07/06/17 08:21 Carbon Dioxide 26 mmol/L (22-30) 07/06/17 08:21 Anion Gap 15 mmol/L 07/06/17 08:21 BUN 4 mg/dL (9-20) L 07/06/17 08:21 Creatinine 0.8 mg/dL (0.8-1.5) 07/06/17 08:21 Estimated GFR > 60 ml/min 07/06/17 08:21 BUN/Creatinine Ratio 5.00 % 07/06/17 08:21 Glucose 88 mg/dL (75-100) 07/06/17 08:21 Hemoglobin A1c < 4.2 % (4-6) 07/04/17 15:30 Lactic Acid 1.40 mmol/L (0.7-2.0) 07/04/17 17:59 Calcium 8.6 mg/dL (8.4-10.2) 07/06/17 08:21 Magnesium 2.10 mg/dL (1.7-2.3) 07/04/17 15:30 Iron 9 ug/dL (49-181) L 07/05/17 11:29 TIBC 334 mcg/dL (250-450) 07/05/17 11:29 Ferritin 3.5 ng/mL (13.0-400.0) L 07/05/17 11:29 Total Bilirubin 0.50 mg/dL (0.1-1.2) 07/06/17 08:21 AST 14 units/L (5-40) 07/06/17 08:21 ALT 6 units/L (7-56) L 07/06/17 08:21 Alkaline Phosphatase 43 units/L (35-129) 07/06/17 08:21 Total Creatine Kinase 59 units/L (55-170) 07/06/17 08:21 CK-MB (CK-2) < 1.0 ng/mL (0.0-4.0) 07/06/17 08:21 CK-MB (CK-2) Rel Index 1.6 (0-4) 07/06/17 08:21 Troponin T < 0.010 ng/mL (0.00-0.029) 07/06/17 08:21 Total Protein 6.7 g/dL (6.3-8.2) 07/06/17 08:21 Albumin 3.6 g/dL (3.9-5) L 07/06/17 08:21 Albumin/Globulin Ratio 1.2 % 07/06/17 08:21 Vitamin B12 921.9 pg/mL (211-911) H 07/05/17 11:29 TSH 0.488 mlU/mL (0.270-4.200) 07/04/17 15:30 Urine Color Yellow (Yellow) 07/04/17 20:05 Urine Turbidity Clear (Clear) 07/04/17 20:05 Urine pH 6.0 (5.0-7.0) 07/04/17 20:05 Ur Specific [place] 1.026 (1.003-1.030) 07/04/17 20:05 Urine Protein 100 mg/dl mg/dL (Negative) 07/04/17 20:05 Urine Glucose (UA) Neg mg/dL (Negative) 07/04/17 20:05 Urine Ketones 80 mg/dL (Negative) 07/04/17 20:05 Urine Blood Neg (Negative) 07/04/17 20:05 Urine Nitrite Neg (Negative) 07/04/17 20:05 Urine Bilirubin Neg (Negative) 07/04/17 20:05 Urine Urobilinogen 2.0 mg/dL (<2.0) 07/04/17 20:05 Ur Leukocyte Esterase Lg (Negative) 07/04/17 20:05 Urine WBC (Auto) 156.0 /HPF (0.0-6.0) H 07/04/17 20:05 Urine RBC (Auto) 21.0 /HPF (0.0-6.0) 07/04/17 20:05 U Epithel Cells (Auto) 2.0 /HPF (0-13.0) 07/04/17 20:05 Urine Bacteria (Auto) 1+ /HPF (Negative) 07/04/17 20:05 Ur Transition Epith Cell 2 /HPF 07/04/17 20:05 Urine Mucus 3+ /HPF 07/04/17 20:05 Salicylates < 0.3 mg/dL (2.8-20.0) L 07/04/17 15:30 Urine Opiates Screen Presumptive negative 07/04/17 20:05 Urine Methadone Screen Presumptive negative 07/04/17 20:05 Acetaminophen < 15.0 ug/mL (10.0-30.0) 07/04/17 15:30 Ur Barbiturates Screen Presumptive negative 07/04/17 20:05 Ur Phencyclidine Scrn Presumptive negative 07/04/17 20:05 Ur Amphetamines Screen Presumptive negative 07/04/17 20:05 U Benzodiazepines Scrn Presumptive negative 07/04/17 20:05 Urine Cocaine Screen Presumptive negative 07/04/17 20:05 U Marijuana (THC) Screen Presumptive positive 07/04/17 20:05 Drugs of Abuse Note Disclamer 07/04/17 20:05 Plasma/Serum Alcohol < 0.01 gm% (0-0.07) 07/04/17 15:30 Blood Type O POSITIVE 07/04/17 15:40 Antibody Screen Negative 07/04/17 15:40 Crossmatch See Detail 07/04/17 15:40
--- NOTE | 2017-07-06 11:42 | Hem/Onc Progress Note ---
Subjective Date of service: 07/06/17 Principal diagnosis: GI bleed Interval history: Events of this am noted, but patient is currently asymptomatic Transfusing additional 2 units of rbc because hgb is 7.6 - platelet count is markedly elevated - suspect this is reactive if it does not trend down tomorrow consider Hydrea - will discuss case today with Abbie Ramirez Objective - Constitutional Vitals: Last Vital Signs Temp 98.7 F 07/06/17 08:00 Pulse 72 07/06/17 08:00 Resp 20 07/06/17 08:00 BP 112/68 07/06/17 08:00 Pulse Ox 98 07/06/17 07:56 General appearance: no acute distress Performance status: 0-fully active - EENT Eyes: PERRL, EOM intact ENT: hearing intact, clear oral mucosa, dentition normal - Neck Neck: supple, normal ROM - Respiratory Respiratory effort: Positive: normal Respiratory: bilateral: CTA - Cardiovascular Rhythm: regular Extremities: No edema Extremity abnormal: edema - Integumentary Integumentary: clear, warm - Labs Lab Results: Laboratory Results - last 24 hr 07/05/17 07/05/17 07/05/17 11:29 11:29 11:29 WBC RBC Hgb Hct MCV MCH MCHC RDW Plt Count D-Dimer Sodium Potassium Chloride Carbon Dioxide Anion Gap BUN Creatinine Estimated GFR BUN/Creatinine Ratio Glucose Calcium Iron 9 L TIBC 334 Ferritin 3.5 L Total Bilirubin AST ALT Alkaline Phosphatase Total Creatine Kinase CK-MB (CK-2) CK-MB (CK-2) Rel Index Troponin T Total Protein Albumin Albumin/Globulin Ratio Vitamin B12 921.9 H 07/06/17 07/06/17 07/06/17 08:21 08:21 08:21 WBC 16.0 H RBC 3.59 L Hgb 7.6 L Hct 24.2 L MCV 67 L MCH 21 L MCHC 32 RDW 25.4 H Plt Count 1245 H* D-Dimer Sodium 142 Potassium 3.7 Chloride 105.1 Carbon Dioxide 26 Anion Gap 15 BUN 4 L Creatinine 0.8 Estimated GFR > 60 BUN/Creatinine Ratio 5.00 Glucose 88 Calcium 8.6 Iron TIBC Ferritin Total Bilirubin 0.50 AST 14 ALT 6 L Alkaline Phosphatase 43 Total Creatine Kinase 59 CK-MB (CK-2) < 1.0 CK-MB (CK-2) Rel Index 1.6 Troponin T < 0.010 Total Protein 6.7 Albumin 3.6 L Albumin/Globulin Ratio 1.2 Vitamin B12 07/06/17 09:42 WBC RBC Hgb Hct MCV MCH MCHC RDW Plt Count D-Dimer 329.59 H Sodium Potassium Chloride Carbon Dioxide Anion Gap BUN Creatinine Estimated GFR BUN/Creatinine Ratio Glucose Calcium Iron TIBC Ferritin Total Bilirubin AST ALT Alkaline Phosphatase Total Creatine Kinase CK-MB (CK-2) CK-MB (CK-2) Rel Index Troponin T Total Protein Albumin Albumin/Globulin Ratio Vitamin B12
[2017-07-06] MEDS ORDERED: NACL 0.9% 500 ML 500 ML IV ONE ×2 (12:00→23:30)
[2017-07-06] MEDS ORDERED: NACL ONE (14:49)
--- NOTE | 2017-07-06 15:43 | Cat Scan Report ---
FINAL REPORT EXAM: CT ANGIO CHEST HISTORY: PLEURITIC CHEST PAIN TECHNIQUE: Spiral CTA of the chest after the uneventful administration of IV contrast. Multiplanar reformations. 100 mL Omnipaque IV. PRIORS: None. FINDINGS: Chest: The main and bilateral proximal pulmonary arteries are normally opacified without endoluminal filling defects. No apparent aneurysm, pseudoaneurysm or aortic dissection. No significant lymph node enlargement or axillary adenopathy. Lungs show mild and probable dependent left basilar atelectasis. 2, small and adjacent, nodular densities in the anterolateral aspect of right middle lobe, largest measuring 3 mm. No discrete parenchymal mass, focal consolidation or pleural effusions. No apparent pneumothorax. Visualized upper abdomen grossly unremarkable. IMPRESSION: 1. No evidence of large vessel or central pulmonary emboli. No acute consolidation. 2. If the patient is low risk (no significant smoking history, no history of malignancy, and a normal immune system), multiple nodules less than 6 mm in size need no require routine follow-up. If the patient is high risk, optional CT chest at 12 months may be considered. (Based on Fleischner guidelines.)
[2017-07-06] MEDS ORDERED: NACL 0.9% 500 ML 500 ML ONE (17:09)
[2017-07-06] MEDS ORDERED: ULTRAM PO PRN (19:03)
[2017-07-06] MEDS ORDERED: DILAUDID IV STA (19:04)
--- NOTE | 2017-07-06 21:47 | Consultation ---
REASON FOR CONSULTATION: Nausea, vomiting. HISTORY OF PRESENT ILLNESS: The patient is a 27-year-old man who was recently hospitalized from 06/15/2017 through 06/16/2017 with anemia and abdominal pain and black tarry bowel movements. He underwent an upper endoscopy on 06/15/[address] Rodgers showing 2 antral ulcers measuring 5 mm and 1 mm. Biopsies showed H. pylori and the patient was initiated on therapy as an outpatient. He had been on therapy for 9 days and 5 days ago, he noted onset of nausea and vomiting. He felt very weak and states that he saw dark stools. He therefore presented to the Emergency Room because of the weakness and these changes. Here, he was noted to have thrombocythemia that was profound and an elevated white blood cell count of 17.9. His hemoglobin was 7.2 on admission, which was slightly lowered than at time of discharge. Because of this, GI consultation is obtained. At time of consultation, the patient was feeling better and at the time of exam, was not nauseated. He has been seen by Hematology and was getting an iron infusion. Of note, the patient has iron deficiency, which is profound with an iron of 9 and a ferritin of 3.5. He states he underwent a colonoscopy in [place], [place] in February 2017 which showed a few polyps and was done because of a family history of colon cancer in his father. The patient does not believe he was anemic before, but we do not have any data. There has been no hardik hematemesis or hematochezia. The patient has noted occasional bright red blood on toilet paper for more than a year and this is attributed to known internal and external hemorrhoids. ALLERGIES: He has no known drug allergies. MEDICATIONS: At home, he was taking Protonix as well as Zithromax and amoxicillin and Zofran. PAST MEDICAL HISTORY: He has no significant past medical or surgical history. FAMILY HISTORY: Notable for colon cancer in his father. SOCIAL HISTORY: Negative for tobacco or ethanol usage. REVIEW OF SYSTEMS: Otherwise, noncontributory except as noted above. PHYSICAL EXAMINATION: GENERAL: This is a well-developed, well-nourished, young obese black male lying in bed in no apparent distress. VITAL SIGNS: Temperature is 98.3 with a pulse of 66 and blood pressure of 117/70. HEENT: He is anicteric. Pupils are round and reactive. Oropharynx is clear. LUNGS: Clear bilaterally to auscultation. CARDIOVASCULAR: Regular with no extra heart sounds. ABDOMEN: Soft with good bowel sounds and no organomegaly. He has mild tenderness to deep palpation in his epigastrium. RECTAL: Performed and showed normal light yellowish brown stool that was soft with no hardik blood noted. He does have an external hemorrhoidal tag. No mass was identified. LABORATORY DATA: White count was 15.3, hemoglobin 6.5, hematocrit 21.6, MCV of 67, platelet count of 1257. Sodium 140, potassium 3.1, chloride 103, bicarbonate 25, BUN 7, creatinine 0.9, glucose 87, AST of 11, ALT of 5, alkaline phosphatase of 45, total bilirubin of 0.7, albumin of 3.6. Vitamin B12 level is normal at 921 and his iron is low at 9 with a TIBC of 334 and a ferritin of 3.5. Urine screen was positive for THC. IMPRESSION: 1. Nausea/vomiting -- exacerbation is more than likely attributable to the antibiotics. The patient does have ulcers, but he is on appropriate proton pump inhibitors and this should help heal the ulcers. Based on their appearance at endoscopy and his treatment, it is unlikely that these would have bled. I would continue proton pump inhibitors and not treat any further for the H. pylori. I would also check gallbladder ultrasound to exclude biliary colic given the nausea, vomiting. 2. Peptic ulcer disease/H. pylori -- the patient has been on appropriate treatment. I would not complete a 2-week course of treatment for H. pylori. The patient should stay on PPIs and follow up as an outpatient and we can then check for eradication in 2 months. 3. Iron deficiency anemia -- etiology unclear. It would be useful to acquire records from [place] to see how chronic his anemia is. A pill camera may also be appropriate on an outpatient basis. If no bleeding source is identified, the patient may have malabsorptive process and require IV iron infusions periodically if oral supplementation is inadequate. This can be further addressed on an outpatient basis. JOB# [id number] HRC/NTS
--- NOTE | 2017-07-07 08:07 | Progress Note ---
Assessment and Plan Assessment and plan: 27 y/o AAM with hx of H pylori diagnosed recently and on day 9 of triple drug therapy ( Amoxicillin Biaxin 1gm po bid Protonix 50 bid)has been vomiting for 5 days 3 to 4 times a day.Feels very weak and apparently fell 2 to 3 times over the last 48 hrs.Also body aches all over.No fever.Dysuria present.Some epigastric discomfort present.Was diagnosed with H Pylori and 2 gastric ulcers recently - hence the triple drug regimen.No BM because of decreased food intake.No syncope.Feels Light headed and weak from recurrent vomiting.Exacerbating factor -H pylori medication. - Patient Problems (1) gastric ulcers: * Continue PPI. GI evaluation. (2) UTI (urinary tract infection)-complex UTI-Male Current Visit: Yes Status: Acute Qualifiers: Urinary tract infection type: acute cystitis Hematuria presence: without hematuria Indwelling urinary catheter type: I Encounter type: E Qualified Code(s): N30.00 - Acute cystitis without hematuria Plan to address problem: IV Rocephin pending urine cultures -discussed with staff about obtaining. Not sure utility at this time. patient with no fever. Sec to UTI and severe gastritis which is drug induced probably from Biaxin.Will hold Biaxin Cont Protonix and Amoxicillin.IV Ceftriaxone for UTI.IV fluids for volume depletion sec to vomiting. (3) Anemia due to acute blood loss Current Visit: No Status: Acute Plan to address problem: Awaiting stool for occult blood. Per GI rectal exam unrevealing. Hemoglobin 7.6 FOLLOWING 2 UNITS PRBC. Will recheck IN AM. Severe Iron DEF anemia-Iron transfusion per Hematology (4) Thrombocytosis Current Visit: Yes Status: Acute Plan to address problem: Hematology consult requested Reactive?? Hydra if no improvement. Possible discharge today. (5) Weakness Current Visit: Yes Status: Acute Continue D5 half address. If no improvement will obtain PT OT evaluation and treat (6) Gastric ulcer Current Visit: No Status: Acute Qualifiers: Gastric ulcer chronicity: acute Gastric ulcer complication status: with hemorrhage Qualified Code(s): K25.0 - Acute gastric ulcer with hemorrhage Plan to address problem: IV protonix GI consult with Dr Bethea group-Has seen Dr Bethea recently. (7) Recurrent falls Current Visit: Yes Status: Acute Plan to address problem: Sec to volume depletion Orthostatics ordered IV fluids for now (8) hypokalemia * Replace (9) acute respiratory distress with Pleuritic chest pain. * Likely GERD, anxiety. ?reaction to Dilaudid. * D-dimer is elevated. CTA negative for pulmonary embolism * Continue nebulizer treatment (10) persistent nausea * improved trial of Phenergan (10)DVT prophylaxis Current Visit: Yes Status: Acute Plan to address problem: on scd's Patient's family indicated above findings. Plan for discharge today if ok with Hematology. Hospitalist Physical - Constitutional Vitals: Temp Pulse Resp BP Pulse Ox 98.8 F 76 18 141/71 98 07/07/17 06:05 07/07/17 06:05 07/07/17 07:09 07/07/17 06:05 07/07/17 06:05 General appearance: Present: no acute distress, well-nourished Results - Labs CBC & Chem 7: 07/06/17 08:21 07/06/17 08:21 Labs: Laboratory Last Values WBC 16.0 K/mm3 (4.5-11.0) H 07/06/17 08:21 RBC 3.59 M/mm3 (3.65-5.03) L 07/06/17 08:21 Hgb 7.6 gm/dl (11.8-15.2) L 07/06/17 08:21 Hct 24.2 % (35.5-45.6) L 07/06/17 08:21 MCV 67 fl (84-94) L 07/06/17 08:21 MCH 21 pg (28-32) L 07/06/17 08:21 MCHC 32 % (32-34) 07/06/17 08:21 RDW 25.4 % (13.2-15.2) H 07/06/17 08:21 Plt Count 1245 K/mm3 (140-440) H* 07/06/17 08:21 Lymph % (Auto) 19.7 % (13.4-35.0) 07/05/17 05:32 [place] % (Auto) 8.9 % (0.0-7.3) H 07/05/17 05:32 Eos % (Auto) 1.7 % (0.0-4.3) 07/05/17 05:32 Baso % (Auto) 0.6 % (0.0-1.8) 07/05/17 05:32 Lymph # 3.0 K/mm3 (1.2-5.4) 07/05/17 05:32 [place] # 1.4 K/mm3 (0.0-0.8) H 07/05/17 05:32 Eos # 0.3 K/mm3 (0.0-0.4) 07/05/17 05:32 Baso # 0.1 K/mm3 (0.0-0.1) 07/05/17 05:32 Seg Neutrophils % 69.1 % (40.0-70.0) 07/05/17 05:32 Seg Neutrophils # 10.6 K/mm3 (1.8-7.7) H 07/05/17 05:32 D-Dimer 329.59 ng/mlDDU (0-234) H 07/06/17 09:42 Sodium 142 mmol/L (137-145) 07/06/17 08:21 Potassium 3.7 mmol/L (3.6-5.0) 07/06/17 08:21 Chloride 105.1 mmol/L (98-107) 07/06/17 08:21 Carbon Dioxide 26 mmol/L (22-30) 07/06/17 08:21 Anion Gap 15 mmol/L 07/06/17 08:21 BUN 4 mg/dL (9-20) L 07/06/17 08:21 Creatinine 0.8 mg/dL (0.8-1.5) 07/06/17 08:21 Estimated GFR > 60 ml/min 07/06/17 08:21 BUN/Creatinine Ratio 5.00 % 07/06/17 08:21 Glucose 88 mg/dL (75-100) 07/06/17 08:21 Hemoglobin A1c < 4.2 % (4-6) 07/04/17 15:30 Lactic Acid 1.40 mmol/L (0.7-2.0) 07/04/17 17:59 Calcium 8.6 mg/dL (8.4-10.2) 07/06/17 08:21 Magnesium 2.10 mg/dL (1.7-2.3) 07/04/17 15:30 Iron 9 ug/dL (49-181) L 07/05/17 11:29 TIBC 334 mcg/dL (250-450) 07/05/17 11:29 Ferritin 3.5 ng/mL (13.0-400.0) L 07/05/17 11:29 Total Bilirubin 0.50 mg/dL (0.1-1.2) 07/06/17 08:21 AST 14 units/L (5-40) 07/06/17 08:21 ALT 6 units/L (7-56) L 07/06/17 08:21 Alkaline Phosphatase 43 units/L (35-129) 07/06/17 08:21 Total Creatine Kinase 59 units/L (55-170) 07/06/17 08:21 CK-MB (CK-2) < 1.0 ng/mL (0.0-4.0) 07/06/17 08:21 CK-MB (CK-2) Rel Index 1.6 (0-4) 07/06/17 08:21 Troponin T < 0.010 ng/mL (0.00-0.029) 07/06/17 08:21 Total Protein 6.7 g/dL (6.3-8.2) 07/06/17 08:21 Albumin 3.6 g/dL (3.9-5) L 07/06/17 08:21 Albumin/Globulin Ratio 1.2 % 07/06/17 08:21 Vitamin B12 921.9 pg/mL (211-911) H 07/05/17 11:29 TSH 0.488 mlU/mL (0.270-4.200) 07/04/17 15:30 Urine Color Yellow (Yellow) 07/04/17 20:05 Urine Turbidity Clear (Clear) 07/04/17 20:05 Urine pH 6.0 (5.0-7.0) 07/04/17 20:05 Ur Specific [place] 1.026 (1.003-1.030) 07/04/17 20:05 Urine Protein 100 mg/dl mg/dL (Negative) 07/04/17 20:05 Urine Glucose (UA) Neg mg/dL (Negative) 07/04/17 20:05 Urine Ketones 80 mg/dL (Negative) 07/04/17 20:05 Urine Blood Neg (Negative) 07/04/17 20:05 Urine Nitrite Neg (Negative) 07/04/17 20:05 Urine Bilirubin Neg (Negative) 07/04/17 20:05 Urine Urobilinogen 2.0 mg/dL (<2.0) 07/04/17 20:05 Ur Leukocyte Esterase Lg (Negative) 07/04/17 20:05 Urine WBC (Auto) 156.0 /HPF (0.0-6.0) H 07/04/17 20:05 Urine RBC (Auto) 21.0 /HPF (0.0-6.0) 07/04/17 20:05 U Epithel Cells (Auto) 2.0 /HPF (0-13.0) 07/04/17 20:05 Urine Bacteria (Auto) 1+ /HPF (Negative) 07/04/17 20:05 Ur Transition Epith Cell 2 /HPF 07/04/17 20:05 Urine Mucus 3+ /HPF 07/04/17 20:05 Salicylates < 0.3 mg/dL (2.8-20.0) L 07/04/17 15:30 Urine Opiates Screen Presumptive negative 07/04/17 20:05 Urine Methadone Screen Presumptive negative 07/04/17 20:05 Acetaminophen < 15.0 ug/mL (10.0-30.0) 07/04/17 15:30 Ur Barbiturates Screen Presumptive negative 07/04/17 20:05 Ur Phencyclidine Scrn Presumptive negative 07/04/17 20:05 Ur Amphetamines Screen Presumptive negative 07/04/17 20:05 U Benzodiazepines Scrn Presumptive negative 07/04/17 20:05 Urine Cocaine Screen Presumptive negative 07/04/17 20:05 U Marijuana (THC) Screen Presumptive positive 07/04/17 20:05 Drugs of Abuse Note Disclamer 07/04/17 20:05 Plasma/Serum Alcohol < 0.01 gm% (0-0.07) 07/04/17 15:30 Blood Type O POSITIVE 07/04/17 15:40 Antibody Screen Negative 07/04/17 15:40 Crossmatch See Detail 07/04/17 15:40
[2017-07-07 08:15] VITALS: BP 116/63
[2017-07-07 08:27] LABS: Hematocrit 29.7 % (35.5-45.6); Mean Corpuscular HGB Conc 30 % (32-34); Mean Corpuscular Volume 73 fl (84-94); Red Blood Count 4.08 M/mm3 (3.65-5.03); White Blood Count 13.6 K/mm3 (4.5-11.0)
[2017-07-07 08:44] LABS: Mean Corpuscular Hemoglobin 22 pg (28-32)
[2017-07-07 09:06] LABS: Anion Gap 15 mmol/L; BUN/Creatinine Ratio 5.55; Blood Urea Nitrogen 5 mg/dL (9-20); Calcium 8.8 mg/dL (8.4-10.2); Carbon Dioxide 26 mmol/L (22-30); Chloride 107.9 mmol/L (98-107); Glucose 85 mg/dL (75-100); Potassium 3.7 mmol/L (3.6-5.0); Sodium 145 mmol/L (137-145)
--- NOTE | 2017-07-07 09:31 | Hem/Onc Progress Note ---
Assessment and Plan Patient has iron deficiency and associated thrombocytosis. Platelets are coming down. If discharged, he needs to follow-up with Dr. Ramirez as outpatient. GI workup with possible PillCam as outpatient. Subjective Date of service: 07/07/17 Interval history: Patient feels fair. Pain has improved. He is very anxious about his condition. Platelets although not reported yet but are 1080k today. Hemoglobin has improved. Tolerated IV iron well. Wants to eat regular food. Objective - Constitutional Vitals: Last Vital Signs Temp 98.2 F 07/07/17 07:21 Pulse 76 07/07/17 07:21 Resp 18 07/07/17 07:21 BP 116/63 07/07/17 07:21 Pulse Ox 96 07/07/17 07:21 General appearance: no acute distress Performance status: 1-light work, ambulatory - Neck Neck: supple - Respiratory Respiratory effort: Positive: normal - Cardiovascular Rhythm: regular Extremities: No edema - Gastrointestinal General gastrointestinal: Present: soft - Labs Lab Results: Laboratory Results - last 24 hr 07/06/17 07/06/17 07/07/17 08:21 09:42 07:26 WBC 13.6 H RBC 4.08 Hgb 9.0 L Hct 29.7 L MCV 73 L MCH 22 L MCHC 30 L RDW 27.0 H D-Dimer 329.59 H Sodium Potassium Chloride Carbon Dioxide Anion Gap BUN Creatinine Estimated GFR BUN/Creatinine Ratio Glucose Calcium Total Creatine Kinase 59 CK-MB (CK-2) < 1.0 CK-MB (CK-2) Rel Index 1.6 Troponin T < 0.010 07/07/17 07:26 WBC RBC Hgb Hct MCV MCH MCHC RDW D-Dimer Sodium 145 Potassium 3.7 Chloride 107.9 H Carbon Dioxide 26 Anion Gap 15 BUN 5 L Creatinine 0.9 Estimated GFR > 60 BUN/Creatinine Ratio 5.55 Glucose 85 Calcium 8.8 Total Creatine Kinase CK-MB (CK-2) CK-MB (CK-2) Rel Index Troponin T
[2017-07-07] MEDS: PROTONIX PO SCH (11:01)
[2017-07-07 11:04] LABS: Platelet Count 1089 K/mm3 (140-440)
--- NOTE | 2017-07-07 11:46 | Discharge Summary ---
Providers - Providers Date of Admission: 07/04/17 19:15 Attending physician: ISAAC ESTEVEZ MD 07/04/17 21:28 Consult to Physician [CONS] Routine Consulting Provider: ANTOINETTE BYNUM Reason For Exam: h pylori +Vomiting Place consult to:: dr. bynum Notified:: answering service Phone number called:: [phone] Was contact made?: Yes If yes, spoke with:: winston Baez called:: 13:19 07/04/17 21:31 Consult to Physician [CONS] Routine Consulting Provider: SANDRA RAMÍREZ Reason For Exam: thrombocytosis Place consult to:: dr. ramírez Notified:: answering service Phone number called:: Was contact made?: Yes If yes, spoke with:: arlette Time called:: 13:33 Primary care physician: [employer] Hospitalization Reason for admission: gi bleed Condition: Stable Hospital course: 27 y/o AAM with hx of H pylori diagnosed recently and on day 9 of triple drug therapy ( Amoxicillin Biaxin 1gm po bid Protonix 50 bid)has been vomiting for 5 days 3 to 4 times a day.Feels very weak and apparently fell 2 to 3 times over the last 48 hrs.Also body aches all over.No fever.Dysuria present.Some epigastric discomfort present.Was diagnosed with H Pylori and 2 gastric ulcers recently - hence the triple drug regimen.No BM because of decreased food intake.No syncope.Feels Light headed and weak from recurrent vomiting.Exacerbating factor -H pylori medication. - Patient Problems (1) gastric ulcers: * Continue PPI. GI evaluation. (2) UTI (urinary tract infection)-complex UTI-Male patient was with Treated with IV rocephin and subsequently changed to oral abx on discharge. (3) Anemia due to acute blood loss Awaiting stool for occult blood. Per GI rectal exam unrevealing. Hemoglobin 7.6 FOLLOWING 2 UNITS PRBC. stable, Pill cam recommended out patient. 4 Severe Iron DEF anemia-Iron transfusion per Hematology (5) Thrombocytosis Hematology consult requested, reactive, trending down on discharge. patient will follow with hemonc and recheck outpatient (6) Weakness Current Visit: Yes Status: Acute Continue D5 half address. If no improvement will obtain PT OT evaluation and treat (7) Gastric ulcer Continued tripple therapy (8) Recurrent falls Sec to volume depletion Orthostatics ordered, IMPROVED AND NOW AMBULATORY (9) hypokalemia * Replace (10) acute respiratory distress with Pleuritic chest pain. * patient had acute respiratory failure and treated oxygen and weaned off. CTA was negative for PE. (11) persistent nausea * improved trial of Phenergan Disposition: DC-01 TO HOME OR SELFCARE Time spent for discharge: 35 MINS Core Measure Documentation - Palliative Care Palliative Care/ Comfort Measures: Not Applicable - Core Measures Any of the following diagnoses?: none - VTE Discharge Requirements Deep Vein Thrombosis/Pulmonary Embolism Present on Admission: No Exam - Physical Exam Narrative exam: VITAL SIGNS: Reviewed. GENERAL: The patient appeared well nourished and normally developed. Obese. Vital signs as documented. HEAD: No signs of head trauma. EYES: Pupils are equal. Extraocular motions intact. EARS: Hearing grossly intact. MOUTH: Oropharynx is normal. NECK: No adenopathy, no JVD. CHEST: Chest with CLEAR breath sounds bilaterally. No wheezes, rales, or rhonchi. CARDIAC: Regular rate and rhythm. S1 and S2, without murmurs, gallops, or rubs. VASCULAR: No Edema. Peripheral pulses normal and equal in all extremities. ABDOMEN: Soft, without detectable tenderness. No sign of distention. No rebound or guarding, and no masses palpated. Bowel Sounds normal. MUSCULOSKELETAL: Good range of motion of all major joints. Extremities without clubbing, cyanosis or edema. NEUROLOGIC EXAM: Alert and oriented x 3. No focal sensory or strength deficits. Speech normal. Follows commands. PSYCHIATRIC: Mood anxious SKIN: No rash or lesions. - Constitutional Vitals: Temp Pulse Resp BP Pulse Ox 98.2 F 76 18 116/63 96 07/07/17 07:21 07/07/17 07:21 07/07/17 08:09 07/07/17 07:21 07/07/17 07:21 Plan Activity: advance as tolerated, fall precautions Diet: regular Follow up with: PRIMARY CAREMD [Primary Care Provider] - 3-5 Days FARHANA SEPULVEDA MD [Staff Physician] - 7 Days SANDRA RAMÍREZ MD [Staff Physician] - 7 Days Forms: Accompanied Note Prescriptions: Amoxicillin [Trimox CAP] 500 mg PO BID #14 capsule Ferrous Sulfate [Feosol 325 MG tab] 325 mg PO BID #60 tablet Pantoprazole [Protonix TAB] 40 mg PO DAILY #30 tablet Promethazine [Phenergan TAB] 25 mg PO Q6H PRN #14 tablet PRN Reason: Nausea And Vomiting Sennosides [Senna] 8.6 mg PO DAILY #30 tablet traMADol [Ultram] 50 mg PO Q6HR PRN #20 tablet PRN Reason: Pain
== END 2017-07-07 15:00 | disposition home or self-care (01) | DRG 690 ==
LOC: ED 15:01 → 3A 19:15
PROVIDERS: ADMIT Internal Medicine; ATTEND Internal Medicine
PROC: 30233N1 Transfusion of Nonautologous Red Blood Cells into Peripheral Vein, Percutaneous Approach (ICD-10-PCS; principal; 2017-07-05)
DX: N39.0 Urinary tract infection, site not specified (principal); Z68.41 Body mass index [BMI] 40.0-44.9, adult; R65.10 Systemic inflammatory response syndrome (SIRS) of non-infectious origin without acute organ dysfunction; D62 Acute posthemorrhagic anemia; D47.3 Essential (hemorrhagic) thrombocythemia; R29.6 Repeated falls; R53.1 Weakness; Z87.11 Personal history of peptic ulcer disease; E66.01 Morbid (severe) obesity due to excess calories; I10 Essential (primary) hypertension; Z82.49 Family history of ischemic heart disease and other diseases of the circulatory system; K25.9 Gastric ulcer, unspecified as acute or chronic, without hemorrhage or perforation; E87.6 Hypokalemia; D50.9 Iron deficiency anemia, unspecified
CPT/HCPCS: 36415; 70450; 71275; 76700; 80048; 80053; 80307; 80320; 81001; 82140; 82270; 82550; 82553; 82607; 82728; 82747; 83036; 83550; 83735; 84443; 84484; 85025; 85027; 85379; 86850; 86900; 86901; 86920; 93005; 93010; 94640; 96361; 96374; C9113; G0480; J0696; J1170; J2405; J2916; J3480; J7030; J7040; J7042; P9016; Q0169; Q9967